=== PATIENT | female | born 1995 | race Caucasian/White ===

== ENCOUNTER → 2023-02-04 08:11 | Outpatient (CLI) | payer OTHER, SELFPAY ==
--- NOTE | 2023-02-04 08:13 | DI.US.S_ITS ---
PROCEDURE: US OB <= 14 WEEKS FETUS INDICATIONS: DATING AND VIABILITY OUTSIDE/PRIOR DATING DATA: Last menstrual period (LMP): 12/07/2022 LMP-based estimated date of delivery (LARA): 09/13/2023 First dating scan (date and location): 02/04/2023 Estimated date of delivery (LARA) from first dating scan: 09/13/2023 TECHNIQUE: Real-time scanning was performed of the fetus and maternal pelvic organs, with image documentation. Endovaginal scanning was also performed to better visualize the fetus and maternal ovaries. COMPARISON: None. FINDINGS: Embryo: Single intrauterine gestational sac is seen with fetus and yolk sac seen. [place]-rump length measures 5.4 mm. Estimated gestational age is 8 weeks, 3 days. Heart rate: 162 beats per minute. Maternal organs: Right ovary is within normal limits. Corpus luteum is noted in left ovary measures 1.8 x 1.6 x 1.8 cm in size. IMPRESSION: 1. Single live intrauterine gestation with fetus and yolk sac seen. heart rate is 162 beats per minute. Estimated gestational age based on current study is 8 weeks, 3 days. 2. Corpus luteum in left ovary as above. No perigestational hemorrhage. We strive to produce accurate, complete, and clear reports of imaging services. To assist us in improving patient care, this report was composed using standard report templates and voice recognition software. Therefore, it may contain abnormal punctuation, insertions and/or omissions. Occasional wrong-word or sound-alike substitutions may occur. Though we review the report and make efforts to correct it, we do recommend that the report be read carefully in proper context to recognize any text inaccuracies. Dictated by: Fuad Hewitt M.D. on 02/04/2023 at 10:10 Approved by: Fuad Hewitt M.D. on 02/04/2023 at 10:13
== END ==
PROVIDERS: Referring Provider Obstetrics & Gynecology; Visit Provider Obstetrics & Gynecology
DX: O34.81 Maternal care for other abnormalities of pelvic organs, first trimester (principal); N83.12 Corpus luteum cyst of left ovary; Z3A.08 8 weeks gestation of pregnancy
CPT/HCPCS: 76801; 76830; 93975

== ENCOUNTER → 2023-03-06 14:20 | Outpatient (CLI) | payer OTHER, SELFPAY ==
[2023-03-06 15:26] LABS: Add Manual Diff / Slide Review NO; Basophils Absolute Auto 0 /uL (0-100); Basophils Percent Auto 0.3 % (0-2); Eosinophils Absolute Auto 200 /uL (0-450); Eosinophils Percent Auto 2.1 % (2-4); Hematocrit 37.8 % (36-46); Hemoglobin 13.1 g/dL (12.0-16.0); Lymphocytes Absolute Auto 2600 /uL (1100-4500); Lymphocytes Percent Auto 27.4 % (25-40); Mean Corpuscular HGB Conc 34.6 % (30-36); Mean Corpuscular Hemoglobin 28.7 PG (26-34); Mean Corpuscular Volume 82.8 fL (80-100); Monocytes Absolute Auto 600 /uL (0-900); Monocytes Percent Auto 6.1 % (3-14); Neutrophils Absolute Auto 6200 /uL (1500-7000); Neutrophils Percent Auto 64.1 % (50-75); Platelet Count 194 X10^3/uL (150-400); Red Blood Cell Count 4.57 X10^6/uL (4.0-5.2); Red Cell Distribution Width 13.4 % (11.6-14.8); White Blood Cell Count 9.7 X10^3/uL (4.5-11.0)
[2023-03-07 05:28] LABS: RPR Screen Non Reactive (Non Reactive)
[2023-03-07 10:33] LABS: Varicella IgG Antibody <135 index (Immune >165)
[2023-03-09 06:24] LABS: Specimen Label NATERA
[2023-03-09 15:58] LABS: Hepatitis B Surface Antigen NEGATIVE s/c (NEGATIVE); Rubella Antibody IgG 28.5 IU/mL (>15)
[2023-03-09 16:13] LABS: HIV 1 & 2 Ab/Ag 4th Gen Combo NEGATIVE (NEGATIVE); Hep C Virus Ab w/Reflex Quant NEGATIVE s/c (NEGATIVE)
== END ==
PROVIDERS: Referring Provider Student in an Organized Health Care Education/Training Program; Visit Provider Student in an Organized Health Care Education/Training Program
DX: Z34.81 Encounter for supervision of other normal pregnancy, first trimester (principal)
CPT/HCPCS: 36415; 80055; 86787; 86803; 86850; 86900; 86901; 87086; 87389

== ENCOUNTER → 2023-04-23 09:39 | Outpatient (CLI) | payer OTHER, SELFPAY ==
[2023-04-27 13:43] LABS: AFP Value 72.1 ng/mL (.); Gest Age on Col Date 19.6 weeks (.); Insulin Dep Diabetes No (.); OSBR Risk 1IN 3133 (.); Results Report (.); Test Results *Screen Negative* (.)
== END ==
PROVIDERS: Referring Provider Student in an Organized Health Care Education/Training Program; Visit Provider Student in an Organized Health Care Education/Training Program
DX: Z34.82 Encounter for supervision of other normal pregnancy, second trimester (principal); Z3A.19 19 weeks gestation of pregnancy
CPT/HCPCS: 36415; 82105

== ENCOUNTER → 2023-04-27 13:59 | Outpatient (CLI) | payer OTHER, SELFPAY ==
--- NOTE | 2023-04-27 14:00 | DI.US.S_ITS ---
PROCEDURE: US OB >= 14 WEEKS FETUS INDICATIONS: ANATOMY OUTSIDE/PRIOR DATING DATA: Last menstrual period (LMP): 12/08/2023. LMP-based estimated date of delivery (LARA): 09/13/2023. First dating scan (date and location): 02/04/2023. Estimated date of delivery (LARA) from first dating scan: 09/13/2023. The calculations are made using the ultrasound and clinical LARA of 09/13/2023. TECHNIQUE: Real-time scanning was performed of the fetus, with image documentation and biometric measurements. Endovaginal scanning: Not performed COMPARISON: None. FINDINGS: General: A single living intrauterine gestation is present. Presentation: Variable. Placenta: Placental position is posterior and fundal , without previa. Amniotic fluid index: 15.6 cm, normal range is 5-24 cm. Single deepest vertical pocket is 4.6 cm. heart rate: 135 beats per minute. Maternal cervical canal: 3.7 cm long. Normal lower limit is 2.5 cm. biometrics: Biparietal diameter: 4.6 cm, 20 weeks 0 days Head circumference: 17.8 cm, 20 weeks 2 days Abdominal circumference: 15.7 cm, 20 weeks 6 days Femur length: 3.5 cm, 21 weeks 1 day Clinically estimated gestational age: 20 weeks 1 day Composite gestational age from present scan: 20 weeks 4 days Estimated weight and percentile: 386 g, 86th percentile Anatomic survey: Neuro: Ventricles are non-dilated at less than 10 mm. Cisterna magna is normal at 3-11 mm. Cerebellum is normal in size and morphology. Nuchal skin fold: Normal at less than 6 mm between 14-21 weeks gestational age. Face: Nose and lips, facial profile are normal. Spine: No evidence for spina bifida. Heart: 4-chambered heart is present, with normal ventricular outflow tracts. Diaphragm: Diaphragm is intact. Stomach: Left-sided stomach is present. Kidneys: No hydronephrosis. Normal is less than 5 mm in 2nd trimester, less than 7 mm in 3rd trimester. Cord: 3-vessel cord has orthotopic insertion. Bladder: Normal in size. Extremities: All 4 extremities identified. IMPRESSION: 1. Living 2nd trimester intrauterine with no sonographic evidence of complications. Current ultrasound age is concordant with clinical age, measuring 3 days greater than estimated clinical age. 2. Normal 2nd trimester anatomy study. We strive to produce accurate, complete, and clear reports of imaging services. To assist us in improving patient care, this report was composed using standard report templates and voice recognition software. Therefore, it may contain abnormal punctuation, insertions and/or omissions. Occasional wrong-word or sound-alike substitutions may occur. Though we review the report and make efforts to correct it, we do recommend that the report be read carefully in proper context to recognize any text inaccuracies. Dictated by: Rafael Ramos M.D. on 04/27/2023 at 16:30 Approved by: Rafael Ramos M.D. on 04/27/2023 at 16:37
== END ==
PROVIDERS: Referring Provider Student in an Organized Health Care Education/Training Program; Visit Provider Student in an Organized Health Care Education/Training Program
DX: Z36.89 Encounter for other specified antenatal screening (principal); Z3A.20 20 weeks gestation of pregnancy
CPT/HCPCS: 76811

== ENCOUNTER → 2023-06-12 09:38 | Outpatient (CLI) | payer OTHER, SELFPAY ==
[2023-06-12 12:59] LABS: Hematocrit 39.2 % (36-46); Hemoglobin 13.1 g/dL (12.0-16.0)
[2023-06-12 13:34] LABS: GTT (PREG) 1 Hour PP 50gm Dose 114 mg/dL (76-139)
== END ==
PROVIDERS: Referring Provider Student in an Organized Health Care Education/Training Program; Visit Provider Student in an Organized Health Care Education/Training Program
DX: Z34.82 Encounter for supervision of other normal pregnancy, second trimester (principal); Z3A.26 26 weeks gestation of pregnancy
CPT/HCPCS: 36415; 82950; 85014; 85018

== ENCOUNTER 2023-08-06 12:05 | Outpatient (CLI) | payer OTHER, SELFPAY ==
[2023-08-06 13:33] LABS: Appearance Urine UA CLEAR; Bilirubin Urine UA NEGATIVE (NEGATIVE); Color Urine UA YELLOW; Glucose Urine UA NEGATIVE (Negative); Ketones Urine UA TRACE (NEGATIVE); Leukocyte Esterase Urine UA 1+ (NEGATIVE); Nitrite Urine UA NEGATIVE (Negative); Occult Blood Urine UA NEGATIVE (Negative); Protein Urine UA NEGATIVE (Negative); Urobilinogen Urine UA 0.2 E.U./dL (0.2)
[2023-08-06 13:39] LABS: pH Urine UA 5.5 (4.5-8.0)
[2023-08-06 13:47] LABS: Bacteria Urine Many (>30); Culture Indicated Urine Specimen Cultured; RBC Urine 0-1/HPF (0-5/HPF); Squamous Epithelial Cell Urine 5-10 /HPF (0-5/HPF); Urine Volume 10mL (spun); WBC Urine 1-5/HPF (0-5/HPF)
--- NOTE | 2023-08-06 14:12 | P.TNLD_ITS ---
Visit Information Visit Information Date of evaluation: 08/06/23 Primary OB Provider: Mikaela Cote Reason for Evaluation: Yes rule out labor Comments/Additional reasons for admission: Patient presented to triage for low back pain and contractions. Denied leaking fluid or vaginal bleeding. Vital Signs Vital Signs: Reviewed in OBIX, within normal [facility] Surgical History (Updated 03/07/23 @ 21:46 by Gracie Nunez) Anesthesia History of tonsillectomy (~2007) [place] teeth extracted (~2015) Family History (Updated 03/07/23 @ 21:47 by Gracie Nunez) Mother Hyperlipidemia Hypertension Grandmother Heart disease Atrial fibrillation Stroke Hypertension Hyperlipidemia Grandfather Heart disease Hyperlipidemia Hypertension Stroke Grandfather Prostate cancer Grandmother Cancer Melanoma Social History marital status: number of children: 1 household members: spouse and children lives independently: Yes caregiver/support person: Yes housing: [facility] ([facility]) pets and animals: Yes (2 dogs) education level: college (some college, working on degree currently) occupational status: employed and student current occupational exposures/hazards: No (not while ) Previous occupational history: air ordinance, 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 travel history: recent ([place], domestic) seatbelt use: always helmet use: Yes water heater temp set < 120 deg: Yes working smoke detector in home: Yes fire extinguisher in home: Yes carbon monox detector in home: Yes firearms in home: Yes firearms unloaded and locked: Yes do you feel safe at home: Yes Smoking Status: Never smoker second hand exposure: No alcohol intake: former substance use type: does not use during the past year weight has: remained stable well-balanced diet: daily or most days daily servings fruits/ve-4 caffeine: Yes (1-2 cups coffee in AM) Type(s) of exercise: aerobic (rowing machine) Objective Labs Labs: Laboratory Results - last 24 hr 08/06/23 12:30 Urine Color Yellow Urine Appearance Clear Urine pH 5.5 Ur Specific [place] 1.010 Urine Protein Negative Urine Glucose (UA) Negative Urine Ketones Trace H Urine Occult Blood Negative Urine Nitrate Negative Urine Bilirubin Negative Urine Urobilinogen 0.2 Ur Leukocyte Esterase 1+ H Urine RBC 0-1/hpf Urine WBC 1-5/hpf Ur Squamous Epith Cells 5-10 /hpf H Urine Bacteria Many (>30) H Ur Culture Indicated? Specimen cultured Vol Urine Centrifuged 10ml (spun) U Random Total Protein Cancelled Evaluation Evaluation Baseline heart rate: 120 Variability: Moderate (11-25) monitor accelerations: Present Monitor Decelerations: Absent Contraction Frequency (minutes): 5 Uterine Contraction Intensity: Mild Category of Tracing: Reactive Diagnosis, Plan/Disposition Final Diagnosis (1) UTI in : Status: Acute (2) contractions: Status: Acute Plan/Disposition Plan: Patient monitored for several hours with spacing out of her contractions. Cervical exam was attempted by nursing, however patient unable to tolerate, given her cervix was so posterior. UA concerning for possible UTI thus will treat empirically with Macrobid. -patient to follow up in clinic as scheduled OB Disposition: home
== END 2023-08-06 14:01 | disposition home or self-care (01) ==
LOC: LABOR 12:09 → OB 08-10 11:07
PROVIDERS: Family Provider Student in an Organized Health Care Education/Training Program; Referring Provider Student in an Organized Health Care Education/Training Program; Visit Provider Student in an Organized Health Care Education/Training Program
DX: O23.43 Unspecified infection of urinary tract in pregnancy, third trimester (principal); O47.03 False labor before 37 completed weeks of gestation, third trimester; Z3A.34 34 weeks gestation of pregnancy
CPT/HCPCS: 59025; 59050; 81001; 87086; G0378; G0379

== ENCOUNTER → 2023-08-18 16:10 | Outpatient (CLI) | payer OTHER, SELFPAY ==
[2023-08-19 15:40] LABS: Strep Grp B PCR POS for Grp B Strep
== END ==
PROVIDERS: Family Provider Student in an Organized Health Care Education/Training Program; Visit Provider Student in an Organized Health Care Education/Training Program
DX: Z34.93 Encounter for supervision of normal pregnancy, unspecified, third trimester (principal); Z3A.36 36 weeks gestation of pregnancy
CPT/HCPCS: 87653

== ENCOUNTER 2023-09-07 15:16 | Inpatient (IN) | payer OTHER, SELFPAY ==
[2023-09-07 16:33] LABS: Add Manual Diff / Slide Review NO; Basophils Absolute Auto 0 /uL (0-100); Basophils Percent Auto 0.2 % (0-2); Eosinophils Absolute Auto 100 /uL (0-450); Eosinophils Percent Auto 0.6 % (2-4); Hematocrit 39.3 % (36-46); Hemoglobin 13.4 g/dL (12.0-16.0); Lymphocytes Absolute Auto 1800 /uL (1100-4500); Lymphocytes Percent Auto 17.5 % (25-40); Mean Corpuscular HGB Conc 34.1 % (30-36); Mean Corpuscular Hemoglobin 29.7 PG (26-34); Mean Corpuscular Volume 87.2 fL (80-100); Monocytes Absolute Auto 600 /uL (0-900); Monocytes Percent Auto 5.7 % (3-14); Neutrophils Absolute Auto 7900 /uL (1500-7000); Platelet Count 160 X10^3/uL (150-400); Red Blood Cell Count 4.51 X10^6/uL (4.0-5.2); Red Cell Distribution Width 13.5 % (11.6-14.8); White Blood Cell Count 10.4 X10^3/uL (4.5-11.0)
--- NOTE | 2023-09-07 16:40 | P.HPOB_ITS ---
OB HPI Date/Time Date of admission: 09/07/23 Date Patient Seen: 09/07/23 Time Patient Seen: 16:41 History of Present Condition Chief complaint: labor : 2 Para: 1 Estimated Date of Delivery: 09/13/23 Estimated Gestational Age (weeks): 39 Narrative: Lena Burgess is a 28 year old female who presents to labor and delivery in early labor History of Present care: good care, initiated at week # (8), number of visits (10) and pounds weight gain (42) Dating criteria: LMP confirmed by 1st trimester US Ultrasounds: normal mid trimester US Obstetrical complications: none Medical complications: none Preadmission Labs Blood type: A (+) positive -: Antibody screen: negative, GBS status: positive, HBsAG: negative, HIV: negative and RPR/VDLR: negative -: Chlamydia screen: not detected and Gonorrhea screen: not detected -: Rubella: immune and Varicella: not immune HCAB: negative Cell-free DNA: Normal female, negative AFP 1 hr GTT: 114 Prior (ies) History: 06/28/17 39+ 11 7 lb [facility]aginallive [facility] Evaluation Baseline heart rate: 130 Variability: Moderate (11-25) monitor accelerations: Present Monitor Decelerations: Absent Contraction Frequency (minutes): 5 Uterine Contraction Intensity: Moderate Category of Tracing: Reactive Status: Category l Dilation (cm): 2 Effacement (%): 70 station: -1 [facility] Surgical History (Updated 03/07/23 @ 21:46 by Gracie Nunez) Anesthesia History of tonsillectomy (~2007) [place] teeth extracted (~2015) Family History (Updated 03/07/23 @ 21:47 by Gracie Nunez) Mother Hyperlipidemia Hypertension Grandmother Heart disease Atrial fibrillation Stroke Hypertension Hyperlipidemia Grandfather Heart disease Hyperlipidemia Hypertension Stroke Grandfather Prostate cancer Grandmother Cancer Melanoma Social History marital status: number of children: 1 household members: spouse and children lives independently: Yes caregiver/support person: Yes housing: [facility] ([facility]) pets and animals: Yes (2 dogs) education level: college (some college, working on degree currently) occupational status: employed and student current occupational exposures/hazards: No (not while ) Previous occupational history: air ordinance, 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 travel history: recent ([place], domestic) seatbelt use: always helmet use: Yes water heater temp set < 120 deg: Yes working smoke detector in home: Yes fire extinguisher in home: Yes carbon monox detector in home: Yes firearms in home: Yes firearms unloaded and locked: Yes do you feel safe at home: Yes Smoking Status: Never smoker second hand exposure: No alcohol intake: former substance use type: does not use during the past year weight has: remained stable well-balanced diet: daily or most days daily servings fruits/ve-4 caffeine: Yes (1-2 cups coffee in AM) Type(s) of exercise: aerobic (rowing machine) Meds Home Medications and Allergies Home Medications Medication Instructions Recorded Confirmed Type vit no.95-ferrous 1 tab PO DAILY 01/21/23 08/31/23 History fumarate 28 mg-folic acid 800 mcg tablet ( Multivitamins) ondansetron 4 mg disintegrating 4 mg PO Q6H PRN nausea and 02/11/23 08/31/23 Rx tablet vomiting #20 tabs ondansetron 4 mg disintegrating 4 mg PO Q6H PRN nausea and 02/11/23 08/31/23 Rx tablet vomiting in #20 tabs breast pump #1 ea 07/15/23 08/31/23 Rx Allergies Allergy/AdvReac Type Severity Reaction Status Date / Time pineapple AdvReac Mild Abdominal Verified 08/31/23 10:13 Pain Review of Systems Review of Systems Narrative: Patient began having increasing contractions for today and presents for evaluation for labor. Some increased vaginal discharge but no actual rupture membranes. No vaginal bleeding. Good movement. No abdominal pain. OB Exam Vital signs Blood Pressure: 137/80 Pulse Rate: 82 Temperature: 97.6 F Narrative Exam Narrative: HEENT exam within normal limits. Lungs are clear to auscultation percussion. Heart is regular rate and rhythm no S3-S4 murmurs. No thyromegaly. Abdomen is gravid, fetus is vertex. Extremities without edema and nontender. Objective Labs 09/07/23 16:07 Labs: Laboratory Results - last 24 hr 09/07/23 16:07 WBC 10.4 RBC 4.51 Hgb 13.4 Hct 39.3 MCV 87.2 MCH 29.7 MCHC 34.1 RDW 13.5 Plt Count 160 Neut % (Auto) 76.0 H Lymph % (Auto) 17.5 L [place] % (Auto) 5.7 Eos % (Auto) 0.6 L Baso % (Auto) 0.2 Neut # (Auto) 7900 H Lymph # (Auto) 1800 [place] # (Auto) 600 Eos # (Auto) 100 Baso # (Auto) 0 Assessment and Plan Assessment and Plan Assessment and Plan narrative: 2 para 1 39 week 1 day gestation in early labor. Patient was found to have a large for gestational age baby in the 94th percentile at her 36 week ultrasound, also increased at her 20 week ultrasound. Anticipate vaginal delivery but will be prepared for possible dystocia from LGA .
[2023-09-07 16:47] VITALS: BP 137/80; PULSE 82; TEMP 36.4
[2023-09-07 16:55] VITALS: BP 137/80
[2023-09-07] MEDS: LACTATED RINGERS 1,000 ML 100 ML IV (18:08)
[2023-09-07] MEDS: AMPICILLIN 2,000 MG in SODIUM CHLORIDE 0.9% 100 ML 200 MG IV (18:09)
--- NOTE | 2023-09-07 20:43 | PM.AN.REGBLK ---
Regional Block Pre-procedure Procedure: Continuous Lumbar Epidural for L&D Attending OB provider: Carol García PMH/ROS narrative: 28yo female full-term in labor requesting epidural. See pre-anesthesia assessment for further details. ASA Class: II Labs: Hct 39.3 % (36-46) 09/07/23 16:07 Plt Count 160 X10^3/uL (150-400) 09/07/23 16:07 Medications: Current Medications Generic Name Dose Route Start Last Admin Trade Name Freq PRN Reason Stop Dose Admin Calcium Carbonate 1,000 mg 09/07/23 16:08 Calcium Carbonate 500 Mg Tab PO Q4HR PRN Dyspepsia Carboprost Tromethamine 250 mcg 09/07/23 16:07 Carboprost 250 Mcg/Ml Ampul IM Q90M PRN Bleeding Diphenhydramine HCl 25 mg 09/07/23 20:41 Diphenhydramine 50 Mg/Ml Vial IV Q10M PRN Pruritis Ephedrine Sulfate 5 mg 09/07/23 20:41 Ephedrine 50 Mg/Ml Vial IV Q5M PRN Blood pressure decrease more than 20% of baseline. Fentanyl 100 mcg 09/07/23 16:08 Fentanyl 100 Mcg/2 Ml Inj IV Q1H PRN Pain, Severe (7-10) Oxytocin/Lactated Ringer's 30 unit in 500 mls @ 200 mls/hr 09/07/23 16:07 Oxytocin Premix IV CONT PRN Bleeding Protocol Tranexamic Acid 1,000 mg/ 100 mls @ 200 mls/hr 09/07/23 16:07 Sodium Chloride IV NOW PRN Bleeding Ampicillin Sodium 1,000 mg/ 100 mls @ 200 mls/hr 09/07/23 20:15 Sodium Chloride IV Q4H ANT Lactated Ringer's 1,000 mls @ 100 mls/hr 09/07/23 16:15 09/07/23 18:08 Lactated Ringers IV 100 mls/hr CONT ANT Administration FENT 2MCG/ML BUPIV 0.125% EPI 200 mcg in 100 mls @ 6 mls/hr 09/07/23 20:45 Fentanyl/Bupiv/Ns 2mcg/Ml - 0.125% EPIDURAL CONT ANT Lidocaine HCl 20 ml 09/07/23 16:07 Lidocaine 1% 20 Ml INJ INTRA-OP PRN Post Delivery Methylergonovine Maleate 0.2 mg 09/07/23 16:07 Methylergonovine 0.2 Mg Tablet PO Q6HR PRN Heavy Bleeding Methylergonovine Maleate 0.2 mg 09/07/23 16:07 Methylergonovine 0.2 Mg/Ml Vial IM NOW PRN Bleeding Misoprostol 800 mcg 09/07/23 16:07 Misoprostol 200 Mcg Tablet ID NOW PRN Bleeding Misoprostol 400 mcg 09/07/23 16:07 Misoprostol 200 Mcg Tablet SL NOW PRN Bleeding Nalbuphine HCl 2.5 mg 09/07/23 20:41 Nalbuphine 20 Mg/Ml Ampul IV Q10M PRN Pruritis Naloxone HCl 0.2 mg 09/07/23 16:07 Naloxone 0.4 Mg/Ml Vial IV Q2MIN PRN Opiate Reversal Ondansetron HCl 4 mg 09/07/23 16:08 Ondansetron 4 Mg/2 Ml Inj IV Q4HR PRN Nausea And Vomiting Oxytocin 10 unit 09/07/23 16:07 Oxytocin 10 Unit/Ml Vial IM NOW PRN Bleeding Allergies: Allergies Allergy/AdvReac Type Severity Reaction Status Date / Time pineapple AdvReac Mild Abdominal Verified 08/31/23 10:13 Pain Procedure Insertion date: 09/07/23 Insertion time: 20:15 Prep/Local: 1% lidocaine (Chloraprep) Interspace: L2-3 Patient position: sitting Needle: 18 gauge Brijesh Loss of resistance with: saline JEANA at (cm): 7 Catheter placed at SKIN (cm): 13 Catheter in SPACE (cm): 6 Insertion: No CSF, No Blood, No Paresthesia with insertion, No Paresthesia with injection and No Test dose reaction Initial Medications TEST DOSE time: 20:16 TEST DOSE: 1.5% lidocaine with epinephrine 1:200k (mL): 2 BOLUS DOSE time: 20:18 BOLUS DOSE (mL): 3 BOLUS DOSE med: other (Lido with epi) Infusion INFUSION: 0.125% bupivacaine and with fentanyl 2 mcg/mL Initial rate (mL/hr): 8 Subsequent interventions: 20:00 Sterile prep and drape. Spinous processes very difficult to palpate and appear off center to left. After local 1% lido, first attempt at L3-4; bone in every direction. Second attempt at L2-3. Soft JEANA at 7 cm. Sharath 22g spinal needle placed for dural puncture with +pop; no return of spinal fluid but used the glass syringe, which wasn't working well. Attempted to thread catheter; difficult so used JEANA syringe and adjusted needle. Second attempt threading catheter was also met with some resistance but then went in. Prior to test dose, catheter aspirated with return of slightly more fluid than expected, but it did not appear to be spinal fluid. Test dose negative; bolus after two minutes was uneventful. Pt continues to be able to move BLE. Pain decreased from 7/10 to 3/10. Epidural infusion started at 20:34. 21:20 Called to troubleshoot epidural pump, which keeps alarming re occlusion. Pump works when disconnected from catheter. Catheter aspirates normally and able to inject sterile NS easily. Removed filter and pump runs okay. Attempted to give clinician bolus, but pump again kept occluding. Increased rate to 10 ml/hr. Gave bolus of 10 ml 2% lido PF as pt's pain is now 6/10 with contractions and she appears uncomfortable. 21:35 Pt reports no change after lido 2% bolus; she also reports some muscle cramping pain in her R back near the epidural site. Discussed that catheter does not appear to be in the right location and recommended replacement, to which pt agrees. After sterile prep and drape, local injected at L3-4, slightly to the left of prior epidural attempts. Positive JEANA at 6 cm. Sharath 22g needle used to access intrathecal space with return of CSF, and 0.4 ml of 0.75% bupivacaine in dextrose instilled. Pt reported legs became numb and tingly quickly, R>L. Catheter threaded easily. Test dose at 21:54 negative. Bolus at 21:55. Epidural pump restarted at 22:03. Pt appears comfortable and smiling after procedure. Post-procedure Anesthesia date START: 09/07/23 Anesthesia time START: 20:00 Anesthesia date END: 09/08/23 Anesthesia time END: 04:29 Post-procedure Anesthesia Assessment: Yes CV function: HR/BP stable, Yes Resp function: RR/sat/airway adequate, Yes Post-op hydration adequate, Yes Pain control adequate, Yes Nausea & vomiting absent, Yes Temperature > 36 C, Yes Mental status appropriate and No Anesthesia complications
--- NOTE | 2023-09-07 21:05 | PM.OBPNLAB ---
Date/Time Date Patient Seen: 09/07/23 Time Patient Seen: 21:05 Pain Control Pain control: epidural Pelvic Exam Effacement (%): 70 station: -1 Contractions Contractions on admission: regular Monitor mode: External Contraction frequency (min): 4 Contraction duration (min): 1 Contraction pattern: Regular Contraction intensity: Moderate Status status: Category ll Heart Rate Baseline: 150 Monitor Accelerations: Present Monitor Decelerations: Episodic Monitor Variability: Moderate Assessment and Plan Assessment: active labor Plan: continuous present management Comments: Cervical exam will be performed with placement of the [place] catheter after epidural was placed
[2023-09-07] MEDS: AMPICILLIN 1,000 MG in SODIUM CHLORIDE 0.9% 100 ML 200 MG IV (22:47)
[2023-09-08] MEDS: OXYTOCIN PREMIX 30 UNIT/500 ML PLAST..BAG IV (01:32)
[2023-09-08] MEDS: FENT 2MCG/ML BUPIV 0.125% EPI 200 MCG/100 ML PLAST..BAG 10 MCG EPIDURAL (02:21)
[2023-09-08] MEDS: AMPICILLIN 1,000 MG in SODIUM CHLORIDE 0.9% 100 ML 200 MG IV (02:33)
--- NOTE | 2023-09-08 04:44 | P.PCNOB_ITS ---
Labor & Delivery Delivery date: 09/08/23 Cervical ripening method: none Induction method: none Delivery augmentation: pitocin Delivery monitor: external FHT and external uterine Route of delivery: L&D Laceration Description: None Quantitative Blood Loss: 350 Anesthesia Type: Epidural Narrative: Patient arrived on Labor and delivery in early labor. She eventually received an epidural catheter for pain control. There was some difficulty getting the epidural to work and was replaced but then the patient was comfortable. heart tones category 1 to category 2 throughout labor. Patient had spontaneous rupture membranes for clear fluid. She did receive 1 milliunits of Pitocin to augment labor after her epidural was placed. The patient delivered spontaneously over an intact perineum. The viable male was placed on maternal abdomen. After the cord stopped pulsating the cord was clamped, cut, and cord bloods obtained. The placenta delivered spontaneously, intact, with 3 vessels. There were no cervical, vaginal, or perineal tears. Both and mother doing well. Routine care. [place] Baby 1: Infant gender: Male Presentation: vertex Position: Right Occiput Anterior Placenta delivery description: Spontaneous Cord Vessel Description: 3 Vessels score (1 min): 8 score (5 min): 9 weight: 8 lb 11 oz Plan for aftercare: Routine care
[2023-09-08] MEDS: ACETAMINOPHEN 325 MG TABLET 650 MG PO ×2 (07:52→14:12)
[2023-09-08] MEDS: IBUPROFEN 600 MG TABLET PO ×3 (07:52→21:36)
--- NOTE | 2023-09-08 17:17 | P.PNOB_ITS ---
Subjective - OB Subjective Patient comments: no complaints [place] baby status: doing well feeding status: exclusively breast feeding Date Patient Seen: 09/08/23 Time Patient Seen: 17:17 Exam Vital Signs (past 8 hours): Blood pressure 111/72, pulse of 85, temperature 97.8? Narrative Exam Narrative: Abdomen is soft, nontender. Uterus is firm, at U, nontender. Perineum intact. Mild lochia. Extremities with mild edema and nontender. Objective Labs 09/07/23 16:07 Labs: Laboratory Results - last 24 hr 09/07/23 16:07 Blood Type A Positive Antibody Screen Negative Assessment & Plan Plan day: 0 plan OB: routine care Time Spent With Patient Time: Total time spent is greater than 50% in coordination of care (as documented) at patient's floor/unit and/or counseling patient: Time with patient: less than 15 minutes
[2023-09-08] MEDS: HYDROCODONE/ACET 5/325 TABLET 1 TAB PO (21:35)
[2023-09-09] MEDS: HYDROCODONE/ACET 5/325 TABLET 1 TAB PO (04:04)
[2023-09-09] MEDS: IBUPROFEN 600 MG TABLET PO ×2 (04:04→10:56)
[2023-09-09 04:51] VITALS: BP 126/82; PULSE 93; RESP 17; TEMP 37.3
[2023-09-09 06:00] LABS: Add Manual Diff / Slide Review NO; Basophils Absolute Auto 0 /uL (0-100); Basophils Percent Auto 0.3 % (0-2); Eosinophils Absolute Auto 200 /uL (0-450); Eosinophils Percent Auto 1.9 % (2-4); Hematocrit 34.7 % (36-46); Hemoglobin 11.9 g/dL (12.0-16.0); Lymphocytes Absolute Auto 1900 /uL (1100-4500); Lymphocytes Percent Auto 17.4 % (25-40); Mean Corpuscular HGB Conc 34.4 % (30-36); Mean Corpuscular Hemoglobin 30.5 PG (26-34); Mean Corpuscular Volume 88.8 fL (80-100); Monocytes Absolute Auto 600 /uL (0-900); Monocytes Percent Auto 5.5 % (3-14); Neutrophils Absolute Auto 8300 /uL (1500-7000); Neutrophils Percent Auto 74.9 % (50-75); Platelet Count 134 X10^3/uL (150-400); Red Blood Cell Count 3.91 X10^6/uL (4.0-5.2); Red Cell Distribution Width 14.1 % (11.6-14.8)
--- NOTE | 2023-09-09 07:45 | PM.OBDS.1 ---
Discharge Providers Provider Date of admission: 09/07/23 15:16 Discharge Date: 09/09/23 Primary care physician: Rupesh RUEDA Provider Consults: 09/07/23 16:07 Consult to Anesthesiology Urgent Comment: Consulting Provider: Anesthesiologist Reason for consultation: Epidural Has provider been notified: No 09/09/23 04:43 Consult to Information Technology Administrator Routine Comment: Discharge provider: Carol García MD Summary Hospital Course Date Patient Seen: 09/09/23 Time Patient Seen: 06:45 Diagnoses: 39 week gestation status post vaginal delivery Hospital Course: Patient arrived on Labor and delivery in early labor. She received an epidural catheter for pain control. She had a spontaneous vaginal delivery of a viable male . She is breast-feeding without difficulty. She is urinating and ambulating well. Mild lochia. Peripartum Data Delivery Method: Natural Vaginal Laceration Description: None complications: none [place] 1: Gender: Male Disposition of : home Discharge Diagnosis (1) Vaginal delivery: Status: Acute Status at Discharge Cognitive/behavioral status at discharge: oriented Functional status at discharge: independent ambulation Overall status at discharge: patient is progressing back to baseline Time Spent with Patient Time attestation: Total time spent providing and/or coordinating discharge services: Time spent: Less than 30 minutes Objective Labs 09/09/23 05:47 Labs: Laboratory Results - last 24 hr 09/09/23 05:47 WBC 11.0 RBC 3.91 L Hgb 11.9 L Hct 34.7 L MCV 88.8 MCH 30.5 MCHC 34.4 RDW 14.1 Plt Count 134 L Neut % (Auto) 74.9 Lymph % (Auto) 17.4 L Blair % (Auto) 5.5 Eos % (Auto) 1.9 L Baso % (Auto) 0.3 Neut # (Auto) 8300 H Lymph # (Auto) 1900 Blair # (Auto) 600 Eos # (Auto) 200 Baso # (Auto) 0 Exam Vital Signs (past 8 hours): Blood pressure 110/75, pulse 71, temperature 97.2? Narrative Exam Narrative: Abdomen is soft, nontender. Uterus is firm, at U, nontender. Perineum intact. Mild lochia. Extremities with no change in her right leg edema that is been present since her last delivery and no edema in her left leg. Discharge Plan Discharge Plan Patient Disposition: Home Discharge orders & Medications Prescriptions: New acetaminophen 325 mg Tablet 650 mg PO Q6HR PRN (Reason: Pain, Mild (1-3)) Qty: 30 0RF ibuprofen 600 mg Tablet 600 mg PO Q6HR PRN (Reason: Pain, Mild (1-3)) Qty: 20 0RF Continued PNV cmb#95-ferrous fumarate-FA [ Multivitamins] 28 mg iron- 800 mcg tablet 1 tab PO DAILY Discontinued ondansetron 4 mg tablet,disintegrating 4 mg PO Q6H PRN (Reason: nausea and vomiting in ) Qty: 20 1RF ondansetron 4 mg tablet,disintegrating 4 mg PO Q6H PRN (Reason: nausea and vomiting) Qty: 20 1RF No Action (DME) breast pump Device See Rx Instructions .ROUTE .MEDSUPPLY Qty: 1 0RF Rx Instructions: double electric breast pump Follow up/Referrals: ProviderRupesh [Primary Care Provider] - Mikaela Cote DO [Family Provider] - 6 Weeks ( exam) Diet/Activity/Treatments Diet: Regular Activity: Nothing in vagina for 6 weeks Skin/Wound/Dressing Care Report to your healthcare provider any signs of infection, such as:: chills, fever and increased pain Visit Report/Discharge Packet Stand Alone Forms: Discharge: Care, Patient Portal/API, Stroke Signs & Symptoms Discharge Data Primary Care Provider: Rupesh Bowles
[2023-09-09] MEDS: ACETAMINOPHEN 325 MG TABLET 650 MG PO (10:56)
== END 2023-09-09 11:26 | disposition home or self-care (01) | DRG 807 ==
PROVIDERS: Specialist; Admitting Provider Student in an Organized Health Care Education/Training Program; Family Provider Student in an Organized Health Care Education/Training Program; Referring Provider Student in an Organized Health Care Education/Training Program; Visit Provider Student in an Organized Health Care Education/Training Program
DX: O99.824 Streptococcus B carrier state complicating childbirth (principal); Z37.0 Single live birth; Z3A.39 39 weeks gestation of pregnancy; O76 Abnormality in fetal heart rate and rhythm complicating labor and delivery
CPT/HCPCS: 36415; 59050; 59400; 59409; 85025; 86850; 86900; 86901; G0379; J0290; J2590

== ENCOUNTER 2024-01-05 09:00 | Outpatient (RCR) | payer OTHER, SELFPAY ==
--- NOTE | 2023-09-22 17:10 | PT.OIE ---
Current Diagnoses Lymphedema, not elsewhere classified (09/22/23) Edema, unspecified (09/22/23) Encounter for supervision of other normal , second trimester (09/22/23) Past Surgical History (Last Updated 03/07/23 @ 21:46 by Gracie Nunez) Anesthesia History of tonsillectomy (~2007) [place] teeth extracted (~2015) Visit Care Team Role Provider Type Eileen Wise MD Referring Provider Physician Specialty: Gynecology INSTRUMENT PANEL ASSEMBLER Obstetrics Address: [address] [place] [address] [address], [place], [address] Email: [email or web address] [email or web address] Provider Primary Care Provider Non-Staff Specialty: Medical Address: Phone: Email: Mikaela Cote DO Attending Provider Physician Family Provider Specialty: INSTRUMENT PANEL ASSEMBLER Address: [address] [place] [address], [address], [place], [address] Email: [email or web address] Physical Therapy Initial Evaluation PT-OP-A Visit Information Start: 09/21/23 14:33 Freq: Status: Active Protocol: Document 09/22/23 13:42 SAK (Rec: 09/22/23 14:01 [facility] [id number]) Out-Patient Physical Therapy Visit Information Visit Information Visit Type Initial Evaluation Visit Start Time 13:45 Visit Stop Time 15:09 Visit Number 1 Evaluation Information Evaluation Date 09/22/23 PT-OP-B Current Condition Start: 09/21/23 14:33 Freq: Status: Active Protocol: Document 09/22/23 13:42 SAK (Rec: 09/22/23 14:01 [facility] [id number]) Current Condition History of Current Condition Onset Date 6years Current Complaints lymphedema History of Current Condition lymphedema started may 2017 during first in right leg, was told it would go away. Continued to bother her, seen by vascular specialist. Has worn compression stocking (knee high since then). Second it flared up right away, just delievered baby (2 weeks old). States can just see leg swelling increase if doesn't wear compression if her legs are hanging down. Swelling location is toes to mid calf. Wears 20-30 mm Hg knee high compression but doesn't feel like adequately controlling her lymphedema. Prior Treatments and Tests just told to wear compression stockings. Treatment Goals Patient/Caregiver Goals decrease lymphedema to allow her to do usual activities without excess weight of right LE Prior Functional Status Baseline Function- ADL's Independent Baseline Function- Mobility Independent Baseline Function- Gait no limitations Current Functional Impairments (Reported) Functional Limitations- Mobility/Gait leg feels heavy Personal Factors Other Personal Factors That May Effect has , limited time Therapy/Recovery PT-OP-C Subjective Start: 09/21/23 14:33 Freq: Status: Active Protocol: Document 09/22/23 13:42 [facility] (Rec: 09/23/23 17:08 [facility] [id number]) Patient Questionnaires Lymphedema Life Impact Score Lymphedema Score 28 OP-PT Pain Assessment Pain Assessment Grid Paper Pain Assessment Grid Completed Yes Location right LE Intensity 4 Description Burning,Chronic,Pressure, Tightness PT-OP-H Neuro Start: 09/21/23 14:33 Freq: Status: Active Protocol: Document 09/22/23 13:42 [facility] (Rec: 09/23/23 17:08 [facility] [id number]) Sensation Evaluation Gross Sensation Gross Sensation WNL PT-OP-J Posture/Palpation/Skin Start: 09/21/23 14:33 Freq: Status: Active Protocol: Document 09/22/23 13:42 SAK (Rec: 09/23/23 17:08 [facility] [id number]) Palpation Assessment Location right LE Palpation Findings Edema Palpation Details no increase warmth or change in tissue texture Skin Assessment Other Assessments Skin Assessment Comments Stemmer sign positive PT-OP-K Range of Motion Start: 09/21/23 14:33 Freq: Status: Active Protocol: Document 09/22/23 13:42 SAK (Rec: 09/23/23 17:08 [facility] [id number]) Hip Goniometric Range of Motion Hip jyoti Hip ROM WFL Yes Knee Goniometric Range of Motion Knee jyoti Knee ROM WFL Yes Ankle and Foot Goniometric Range of Motion Ankle and Foot Right Dorsiflexion with Knee Flexed 5 Dorsiflexion with Knee Extended 0 left Ankle/Foot ROM WFL Yes Ankle and Foot ROM Limitations ROM Limitations Soft Tissue Tightness,Swelling PT-OP-L Special Tests Start: 09/21/23 14:33 Freq: Status: Active Protocol: Document 09/22/23 13:42 [facility] (Rec: 09/23/23 17:08 [facility] [id number]) Special Tests Other Special Tests Special Tests Stemmer sign positive for lymphedema PT-OP-N Lymphedema Start: 09/22/23 14:01 Freq: Status: Active Protocol: Document 09/22/23 13:42 [facility] (Rec: 09/22/23 15:14 [facility] [id number]) Lymphedema Measurements Lower Extremity Circumference Measurements Right Affected MT Heads 23.5 cm Mid-foot 24.5 cm Medial Malleolus 28 cm 10 cm From Medial Malleolus 27.8 cm 20 cm From Medial Malleolus 37 cm 30 cm From Medial Malleolus 36.6 cm 40 cm From Medial Malleolus 40 cm 50 cm From Medial Malleolus 47.2 cm 60 cm From Medial Malleolus 59.3 cm 70 cm From Medial Malleolus 64.8 cm Knee Joint 40 cm Left Unaffected MT Heads 22.8 cm Mid-foot 24.2 cm Medial Malleolus 26 cm 10 cm From Medial Malleolus 26.9 cm 20 cm From Medial Malleolus 36.6 cm 30 cm From Medial Malleolus 37.8 cm 40 cm From Medial Malleolus 39.7 cm 50 cm From Medial Malleolus 47.4 cm 60 cm From Medial Malleolus 57 cm 70 cm From Medial Malleolus 66.4 cm Knee Joint 39.7 cm PT-OP-Q Treatments Start: 09/21/23 14:33 Freq: Status: Active Protocol: Document 09/22/23 13:42 [facility] (Rec: 09/23/23 17:08 [facility] [id number]) Lymphedema Treatment Manual Lymphatic Drainage Location for right LE lymphedema Duration 20 Lymphedema Wrapping Body Location right LE toes to knee Materials Elastomull 4, Tricofix size F , Artiflex (2 rolls), Comprilan (6,8,10) Sequential Lymphedema Exercises Location instructed, and issued handout Compression Garment Assessment Compression Garment Assessment Details patient did not wear Patient Education Lymphedema Pathology instructed Lymphedema Prevention instructed Lymphedema Precautions instructed Compression Garments discussed options Self Manual Lymphatic Drainage instructed and issued handout Sequential Lymphedema Exercises instructed and issued handout PT-OP-T Assessment and Plan Start: 09/21/23 14:33 Freq: Status: Active Protocol: Document 09/22/23 13:42 [facility] (Rec: 09/22/23 14:01 [facility] [id number]) Physical Therapy Assessment Rehab Potential Rehabilitation Potential Good Evaluation Complexity Number of Personal Factors/Comorbidities 1-2 Number of Body Systems Impaired 3 Clinical Presentation at Evaluation Evolving Impairments Impairments Edema,Functional Activities Goals Three Impairment pain right LE Impairment pain as high as 4/10 Penitentiary Goal (LTG) Decrease pain by at least 50% to allow her to return to all usual activities. LTG Duration 12/22/23 Two Impairment decreased activity tolerance Impairment Lymphedema Life Impact Scale 28% Short Term Goal (STG) Decrease Lymphedema Life Impact scale to no greater than 18% as measure of improved activity tolerance and quality of life STG Duration 11/07/23 Penitentiary Goal (LTG) Decrease Lymphedema Life Impact scale to no greater than 10%as measure of improved activity tolerance and quality of life LTG Duration 12/22/23 One Impairment lymphedema Short Term Goal (STG) Patient to be instructed in all aspects of lymphedema care including skin care, manual lymphatic drainage, lymphedema exercises, compression. STG Duration 11/07/23 Mat Sewer Goal (LTG) Patient to be independent in all aspects of lymphedema care and obtain appropriate compression garments for self management. LTG Duration 12/22/23 Assessment Summary Assessment Patient presents to PT with function-limiting lymphedema right LE which started 6 years ago with first and worsened with second . Has had no prior treatment except to have compression stockings recommended. Reports pain as high as 4/10 right LE . Currently patient does not have any tissue fibrosis, skin discoloration, or change in temperature. Feel she will benefit from physical therapy for complete decongestive therapy to include skin care, manual lymphatic drainage, compression and exercise with patient instructed in all aspects to be able to self manage and prevent potential complications of lymphedema. Patient may benefit from the use of a sequential pneumatic pump to assist with self management. POC was discussed and patient was in agreement. Physical Therapy Plan Frequency and Duration Frequency of Treatment 20 Duration of treatment (weeks) 12 Plan of Care Start Date 09/22/23 Plan of Care End Date 12/22/23 Therapeutic Interventions Therapeutic Interventions Home Exercise Program, Lymphedema Management,Manual Therapy,Patient/Caregiver Education,Self-Care/Home Management,Soft Tissue Mobilization,Taping, Therapeutic Activities, Therapeutic Exercises Modalities Vasopneumatic Devices Next Visit Focus/Plan Next Note Type Treatment Note Next Visit Plan Assess response to compression bandaging, provide MLD and skin care, review lymphedema exercises, continue compression bandaging for lymphedema management.
--- NOTE | 2023-09-23 17:11 | PT.OPPOC ---
Physical, Occupational & Speech Therapy At [facility] Current Diagnoses Lymphedema, not elsewhere classified (09/22/23) Edema, unspecified (09/22/23) Encounter for supervision of other normal , second trimester (09/22/23) Visit Care Team Role Provider Type Eileen Wise MD Referring Provider Physician Specialty: Gynecology MACHINE FARMWORKER Obstetrics Address: [address] [place] [address] [address], [place], [address] Email: [email or web address] Rupesh MOHIT Provider Primary Care Provider Non-Staff Specialty: Medical Address: Phone: Email: Mikaela Cote DO Attending Provider Physician Family Provider Specialty: MACHINE FARMWORKER Address: [address] [place] [address], [address], [place], [address] Email: [email or web address] Plan Of Care PT-OP-T Assessment and Plan Start: 09/21/23 14:33 Freq: Status: Active Protocol: Document 09/22/23 13:42 [facility]ONEL (Rec: 09/22/23 14:01 [facility] [id number]) Physical Therapy Assessment Rehab Potential Rehabilitation Potential Good Evaluation Complexity Number of Personal Factors/Comorbidities 1-2 Number of Body Systems Impaired 3 Clinical Presentation at Evaluation Evolving Impairments Impairments Edema,Functional Activities Goals Three Impairment pain right LE Impairment pain as high as 4/10 Salt Grinder Goal (LTG) Decrease pain by at least 50% to allow her to return to all usual activities. LTG Duration 12/22/23 Two Impairment decreased activity tolerance Impairment Lymphedema Life Impact Scale 28% Short Term Goal (STG) Decrease Lymphedema Life Impact scale to no greater than 18% as measure of improved activity tolerance and quality of life STG Duration 11/07/23 Salt Grinder Goal (LTG) Decrease Lymphedema Life Impact scale to no greater than 10%as measure of improved activity tolerance and quality of life LTG Duration 12/22/23 One Impairment lymphedema Short Term Goal (STG) Patient to be instructed in all aspects of lymphedema care including skin care, manual lymphatic drainage, lymphedema exercises, compression. STG Duration 11/07/23 Salt Grinder Goal (LTG) Patient to be independent in all aspects of lymphedema care and obtain appropriate compression garments for self management. LTG Duration 12/22/23 Assessment Summary Assessment Patient presents to PT with function-limiting lymphedema right LE which started 6 years ago with first and worsened with second . Has had no prior treatment except to have compression stockings recommended. Reports pain as high as 4/10 right LE . Currently patient does not have any tissue fibrosis, skin discoloration, or change in temperature. Feel she will benefit from physical therapy for complete decongestive therapy to include skin care, manual lymphatic drainage, compression and exercise with patient instructed in all aspects to be able to self manage and prevent potential complications of lymphedema. Patient may benefit from the use of a sequential pneumatic pump to assist with self management. POC was discussed and patient was in agreement. Physical Therapy Plan Frequency and Duration Frequency of Treatment 20 Duration of treatment (weeks) 12 Plan of Care Start Date 09/22/23 Plan of Care End Date 12/22/23 Therapeutic Interventions Therapeutic Interventions Home Exercise Program, Lymphedema Management,Manual Therapy,Patient/Caregiver Education,Self-Care/Home Management,Soft Tissue Mobilization,Taping, Therapeutic Activities, Therapeutic Exercises Modalities Vasopneumatic Devices Next Visit Focus/Plan Next Note Type Treatment Note Next Visit Plan Assess response to compression bandaging, provide MLD and skin care, review lymphedema exercises, continue compression bandaging for lymphedema management. Plan of Care Dates Plan of Care Start Date 09/22/23 Plan of Care End Date 12/22/23 Electronically Signed by: Adele Romo PT 09/23/23 4289 If you are in agreement with this Plan of Care, please return a signed and dated copy. I have reviewed this Plan of Care and certify that the skilled therapy services above are required to meet the patient?s needs. Physician Signature Date Printed Name and Credentials Clinical Instructor Signature Printed Name and Credentials
--- NOTE | 2023-09-24 17:32 | PT.OTN ---
Current Diagnoses Lymphedema, not elsewhere classified (09/24/23) Edema, unspecified (09/24/23) Encounter for supervision of other normal , second trimester (09/24/23) Physical Therapy Treatment Note PT-OP-A Visit Information Start: 09/21/23 14:33 Freq: Status: Active Protocol: Document 09/24/23 13:47 SAK (Rec: 09/24/23 15:18 SAK [id number]) Out-Patient Physical Therapy Visit Information Visit Information Visit Type Treatment Note Visit Start Time 13:47 Visit Stop Time 15:14 Visit Number 2 Evaluation Information Evaluation Date 09/22/23 PT-OP-B Current Condition Start: 09/21/23 14:33 Freq: Status: Active Protocol: Document 09/24/23 13:47 SAK (Rec: 09/24/23 15:18 SAK [id number]) Current Condition History of Current Condition Onset Date 6years Current Complaints lymphedema History of Current Condition lymphedema started may 2017 during first in right leg, was told it would go away. Continued to bother her, seen by vascular specialist. Has worn compression stocking (knee high since then). Second it flared up right away, just delievered baby (2 weeks old). States can just see leg swelling increase if doesn't wear compression if her legs are hanging down. Swelling location is toes to mid calf. Wears 20-30 mm Hg knee high compression but doesn't feel like adequately controlling her lymphedema. Prior Treatments and Tests just told to wear compression stockings. Personal Factors Other Personal Factors That May Effect has , limited time Therapy/Recovery PT-OP-C Subjective Start: 09/21/23 14:33 Freq: Status: Active Protocol: Document 09/24/23 13:47 SAK (Rec: 09/24/23 15:18 SAK [id number]) OP-PT Subjective Patient Comments Patient Comments Made it almost 24 hours, was amazed at how much it decreased in size. Then wore compression tights until 5 am, then got uncomfortable. PT-OP-H Neuro Start: 09/21/23 14:33 Freq: Status: Active Protocol: Document 09/22/23 13:42 SAK (Rec: 09/23/23 17:08 SAK [id number]) Sensation Evaluation Gross Sensation Gross Sensation WNL PT-OP-J Posture/Palpation/Skin Start: 09/21/23 14:33 Freq: Status: Active Protocol: Document 09/22/23 13:42 SAK (Rec: 09/23/23 17:08 [facility] [id number]) Palpation Assessment Location right LE Palpation Findings Edema Palpation Details no increase warmth or change in tissue texture Skin Assessment Other Assessments Skin Assessment Comments Stemmer sign positive PT-OP-K Range of Motion Start: 09/21/23 14:33 Freq: Status: Active Protocol: Document 09/22/23 13:42 SAK (Rec: 09/23/23 17:08 [facility] [id number]) Hip Goniometric Range of Motion Hip jyoti Hip ROM WFL Yes Knee Goniometric Range of Motion Knee jyoti Knee ROM WFL Yes Ankle and Foot Goniometric Range of Motion Ankle and Foot Right Dorsiflexion with Knee Flexed 5 Dorsiflexion with Knee Extended 0 left Ankle/Foot ROM WFL Yes Ankle and Foot ROM Limitations ROM Limitations Soft Tissue Tightness,Swelling PT-OP-L Special Tests Start: 09/21/23 14:33 Freq: Status: Active Protocol: Document 09/22/23 13:42 SAK (Rec: 09/23/23 17:08 [facility] [id number]) Special Tests Other Special Tests Special Tests Stemmer sign positive for lymphedema PT-OP-N Lymphedema Start: 09/22/23 14:01 Freq: Status: Active Protocol: Document 09/24/23 13:47 SAK (Rec: 09/24/23 15:18 [facility] [id number]) Lymphedema Measurements Lower Extremity Circumference Measurements Right Affected MT Heads 23.1 cm Mid-foot 24 cm Medial Malleolus 28 cm 10 cm From Medial Malleolus 26.5 cm 20 cm From Medial Malleolus 36.3 cm 30 cm From Medial Malleolus 39.3 cm 40 cm From Medial Malleolus 39.3 cm 50 cm From Medial Malleolus 47.3 cm 60 cm From Medial Malleolus 56.3 cm Knee Joint 39.3 cm PT-OP-Q Treatments Start: 09/21/23 14:33 Freq: Status: Active Protocol: Document 09/24/23 13:48 SAK (Rec: 09/24/23 17:32 SAK [id number]) Therapeutic Exercises Supine Exercises deep breathing Side bilateral Comments with patient educated in quadrant breathing with self facil heelslide Side right Reps/Minutes 10x toe flex/ext Side bilateral Reps/Minutes 10x ankle pumps Side bilateral Reps/Minutes 10x Standing Exercises heel/toe raise Side bilateral Reps/Minutes 10x Lymphedema Treatment Manual Lymphatic Drainage Location for right LE lymphedema Duration 30 Comments use of video and PT demo for education in self MLD Lymphedema Wrapping Body Location right LE toes to knee Materials Elastomull 4, Tricofix size F , Artiflex (2 rolls), Comprilan (6,8,10) Other shown video for self review at home Sequential Lymphedema Exercises Location as above Compression Garment Assessment Compression Garment Assessment Details patient wearing size II Juzo thigh high 15-20 mm Hg compression garment loaner to PT today Patient Education Lymphedema Pathology reviewed Lymphedema Prevention reviewed Lymphedema Precautions reviewed Compression Garments further discussion Self Manual Lymphatic Drainage instructed as above PT-OP-T Assessment and Plan Start: 09/21/23 14:33 Freq: Status: Active Protocol: Document 09/24/23 13:47 [facility] (Rec: 09/24/23 15:18 [facility] [id number]) Physical Therapy Assessment Impairments Impairments Edema,Functional Activities, Pain Goals Three Impairment pain right LE Impairment pain as high as 4/10 Funeral Pre Arrangement Specialist Goal (LTG) Decrease pain by at least 50% to allow her to return to all usual activities. LTG Duration 12/22/23 Two Impairment decreased activity tolerance Impairment Lymphedema Life Impact Scale 28% Short Term Goal (STG) Decrease Lymphedema Life Impact scale to no greater than 18% as measure of improved activity tolerance and quality of life STG Duration 11/07/23 [facility]dc Goal (LTG) Decrease Lymphedema Life Impact scale to no greater than 10%as measure of improved activity tolerance and quality of life LTG Duration 12/22/23 One Impairment lymphedema Short Term Goal (STG) Patient to be instructed in all aspects of lymphedema care including skin care, manual lymphatic drainage, lymphedema exercises, compression. STG Duration 11/07/23 Funeral Pre Arrangement Specialist Goal (LTG) Patient to be independent in all aspects of lymphedema care and obtain appropriate compression garments for self management. LTG Duration 12/22/23 Assessment Summary Assessment Patient reported good size reduction with bandaging but had difficulty peforming on her own, wore loaner 15-20 mm Hg compression stocking thigh high; felt thigh high better than prior knee high sche has worn, but not enough compression. Reviewed bandaging, patient instructed in self MLD verbally, with PT, and with video with patient demonstrating good understanding. Physical Therapy Plan Frequency and Duration Frequency of Treatment 20 Duration of treatment (weeks) 12 Plan of Care Start Date 09/22/23 Plan of Care End Date 12/22/23 Therapeutic Interventions Therapeutic Interventions Home Exercise Program, Lymphedema Management,Manual Therapy,Patient/Caregiver Education,Self-Care/Home Management,Soft Tissue Mobilization,Taping, Therapeutic Activities, Therapeutic Exercises Modalities Vasopneumatic Devices Next Visit Focus/Plan Next Note Type Treatment Note Next Visit Plan Continue CDT.
--- NOTE | 2023-09-29 15:56 | PT.OTN ---
Current Diagnoses Lymphedema, not elsewhere classified (09/29/23) Edema, unspecified (09/29/23) Encounter for supervision of other normal , second trimester (09/29/23) Physical Therapy Treatment Note PT-OP-A Visit Information Start: 09/21/23 14:33 Freq: Status: Active Protocol: Document 09/29/23 13:51 SAK (Rec: 09/29/23 14:28 SAK [id number]) Out-Patient Physical Therapy Visit Information Visit Information Visit Type Treatment Note Visit Start Time 13:47 Visit Stop Time 15:10 Visit Number 3 Evaluation Information Evaluation Date 09/22/23 PT-OP-B Current Condition Start: 09/21/23 14:33 Freq: Status: Active Protocol: Document 09/29/23 13:51 SAK (Rec: 09/29/23 14:28 SAK [id number]) Current Condition History of Current Condition Onset Date 6years Current Complaints lymphedema History of Current Condition lymphedema started may 2017 during first in right leg, was told it would go away. Continued to bother her, seen by vascular specialist. Has worn compression stocking (knee high since then). Second it flared up right away, just delievered baby (2 weeks old). States can just see leg swelling increase if doesn't wear compression if her legs are hanging down. Swelling location is toes to mid calf. Wears 20-30 mm Hg knee high compression but doesn't feel like adequately controlling her lymphedema. Prior Treatments and Tests just told to wear compression stockings. Treatment Goals Patient/Caregiver Goals decrease lymphedema to allow her to do usual activities without excess weight of right LE Prior Functional Status Baseline Function- ADL's Independent Baseline Function- Mobility Independent Baseline Function- Gait no limitations PT-OP-C Subjective Start: 09/21/23 14:33 Freq: Status: Active Protocol: Document 09/29/23 13:51 SAK (Rec: 09/29/23 14:28 SAK [id number]) OP-PT Subjective Patient Comments Patient Comments States she has been bandaging, having some difficulty. Wearing 20-30 mm Hg stocking loaner with best control of edema, didn't do well with only 15-20 mm Hg stockings. PT-OP-H Neuro Start: 09/21/23 14:33 Freq: Status: Active Protocol: Document 09/22/23 13:42 SAK (Rec: 09/23/23 17:08 [facility] [id number]) Sensation Evaluation Gross Sensation Gross Sensation WNL PT-OP-J Posture/Palpation/Skin Start: 09/21/23 14:33 Freq: Status: Active Protocol: Document 09/22/23 13:42 SAK (Rec: 09/23/23 17:08 [facility] [id number]) Palpation Assessment Location right LE Palpation Findings Edema Palpation Details no increase warmth or change in tissue texture Skin Assessment Other Assessments Skin Assessment Comments Stemmer sign positive PT-OP-K Range of Motion Start: 09/21/23 14:33 Freq: Status: Active Protocol: Document 09/22/23 13:42 SAK (Rec: 09/23/23 17:08 [facility] [id number]) Hip Goniometric Range of Motion Hip jyoti Hip ROM WFL Yes Knee Goniometric Range of Motion Knee jyoti Knee ROM WFL Yes Ankle and Foot Goniometric Range of Motion Ankle and Foot Right Dorsiflexion with Knee Flexed 5 Dorsiflexion with Knee Extended 0 left Ankle/Foot ROM WFL Yes Ankle and Foot ROM Limitations ROM Limitations Soft Tissue Tightness,Swelling PT-OP-L Special Tests Start: 09/21/23 14:33 Freq: Status: Active Protocol: Document 09/22/23 13:42 SAK (Rec: 09/23/23 17:08 [facility] [id number]) Special Tests Other Special Tests Special Tests Stemmer sign positive for lymphedema PT-OP-N Lymphedema Start: 09/22/23 14:01 Freq: Status: Active Protocol: Document 09/29/23 13:51 SAK (Rec: 09/29/23 14:28 [facility] [id number]) Lymphedema Measurements Lower Extremity Circumference Measurements Right Affected MT Heads 23.7 cm Mid-foot 24.2 cm Medial Malleolus 28.8 cm 10 cm From Medial Malleolus 27.8 cm 20 cm From Medial Malleolus 36.7 cm 30 cm From Medial Malleolus 37 cm 40 cm From Medial Malleolus 40.3 cm 50 cm From Medial Malleolus 48.4 cm 60 cm From Medial Malleolus 57 cm 70 cm From Medial Malleolus 68.8 cm Knee Joint 40.3 cm PT-OP-Q Treatments Start: 09/21/23 14:33 Freq: Status: Active Protocol: Document 09/29/23 13:51 SAK (Rec: 09/29/23 14:28 [facility] [id number]) Lymphedema Treatment Manual Lymphatic Drainage Location for right LE lymphedema Duration 30 Comments use of video and PT demo for education in self MLD Lymphedema Wrapping Body Location right LE toes to knee Materials Elastomull 4, Tricofix size F , Artiflex (2 rolls), Comprilan (6,8,10) Other shown video for self review at home Sequential Lymphedema Exercises Location as above Compression Garment Assessment Compression Garment Assessment Details patient wearing size II Juzo thigh high 15-20 mm Hg compression garment loaner to PT today PT-OP-T Assessment and Plan Start: 09/21/23 14:33 Freq: Status: Active Protocol: Document 09/29/23 13:51 [facility] (Rec: 09/29/23 15:56 [facility] [id number]) Physical Therapy Assessment Impairments Impairments Edema,Functional Activities, Pain Goals Three Impairment pain right LE Impairment pain as high as 4/10 Rn Perioperative Goal (LTG) Decrease pain by at least 50% to allow her to return to all usual activities. LTG Duration 12/22/23 Two Impairment decreased activity tolerance Impairment Lymphedema Life Impact Scale 28% Short Term Goal (STG) Decrease Lymphedema Life Impact scale to no greater than 18% as measure of improved activity tolerance and quality of life STG Duration 11/07/23 Detention Goal (LTG) Decrease Lymphedema Life Impact scale to no greater than 10%as measure of improved activity tolerance and quality of life LTG Duration 12/22/23 One Impairment lymphedema Short Term Goal (STG) Patient to be instructed in all aspects of lymphedema care including skin care, manual lymphatic drainage, lymphedema exercises, compression. STG Duration 11/07/23 Detention Goal (LTG) Patient to be independent in all aspects of lymphedema care and obtain appropriate compression garments for self management. LTG Duration 12/22/23 Assessment Summary Assessment Patient trying to do self- bandaging, improving but reviewed today, with patient taking video of PT. Preferred Lobito sandle technique to figure 8. Patient not doing toes correctly but demonstrated improved understanding after review. Variable circumferential measurements. Added Komprex kidneys today and issued black foam for possible trial dorsum of foot as that is most challenging area to get reduction. Patient looking at options for compression. Trial of both 15-20 and 20-30 mm Hg pressure compression stockings with patient reporting much better control of edema with 20-30 mm Hg compression level. Physical Therapy Plan Frequency and Duration Frequency of Treatment 20 Duration of treatment (weeks) 12 Plan of Care Start Date 09/22/23 Plan of Care End Date 12/22/23 Therapeutic Interventions Therapeutic Interventions Home Exercise Program, Lymphedema Management,Manual Therapy,Patient/Caregiver Education,Self-Care/Home Management,Soft Tissue Mobilization,Taping, Therapeutic Activities, Therapeutic Exercises Modalities Vasopneumatic Devices Next Visit Focus/Plan Next Note Type Treatment Note Next Visit Plan Continue CDT. Assess response to use of Komprex kidneys and foam.
--- NOTE | 2023-10-05 14:52 | PT.OTN ---
Current Diagnoses Lymphedema, not elsewhere classified (10/05/23) Edema, unspecified (10/05/23) Encounter for supervision of other normal , second trimester (10/05/23) Physical Therapy Treatment Note PT-OP-A Visit Information Start: 09/21/23 14:33 Freq: Status: Active Protocol: Document 10/05/23 13:52 SAK (Rec: 10/05/23 14:[address] [facility] [id number]) Out-Patient Physical Therapy Visit Information Visit Information Visit Type Treatment Note Visit Start Time 13:50 Visit Stop Time 15:15 Visit Number 5 Evaluation Information Evaluation Date 09/22/23 PT-OP-B Current Condition Start: 09/21/23 14:33 Freq: Status: Active Protocol: Document 10/05/23 13:52 SAK (Rec: 10/05/23 14:[address] [facility] [id number]) Current Condition History of Current Condition Onset Date 6years Current Complaints lymphedema History of Current Condition lymphedema started may 2017 during first in right leg, was told it would go away. Continued to bother her, seen by vascular specialist. Has worn compression stocking (knee high since then). Second it flared up right away, just delievered baby (2 weeks old). States can just see leg swelling increase if doesn't wear compression if her legs are hanging down. Swelling location is toes to mid calf. Wears 20-30 mm Hg knee high compression but doesn't feel like adequately controlling her lymphedema. Prior Treatments and Tests just told to wear compression stockings. PT-OP-C Subjective Start: 09/21/23 14:33 Freq: Status: Active Protocol: Document 10/05/23 13:52 SAK (Rec: 10/05/23 14:[address] [facility] [id number]) OP-PT Subjective Patient Comments Patient Comments Bandaging challenging, slid down, tried a couple more times. Feels thigh high bandaging doesn't work well. PT-OP-H Neuro Start: 09/21/23 14:33 Freq: Status: Active Protocol: Document 09/22/23 13:42 SAK (Rec: 09/23/23 17:08 SAK [id number]) Sensation Evaluation Gross Sensation Gross Sensation WNL PT-OP-J Posture/Palpation/Skin Start: 09/21/23 14:33 Freq: Status: Active Protocol: Document 09/22/23 13:[address] [facility] (Rec: 09/23/23 17:[address] [facility] [id number]) Palpation Assessment Location right LE Palpation Findings Edema Palpation Details no increase warmth or change in tissue texture Skin Assessment Other Assessments Skin Assessment Comments Stemmer sign positive PT-OP-K Range of Motion Start: 09/21/23 14:33 Freq: Status: Active Protocol: Document 09/22/23 13:[address] [facility] (Rec: 09/23/23 17:[address] [facility] [id number]) Hip Goniometric Range of Motion Hip jyoti Hip ROM WFL Yes Knee Goniometric Range of Motion Knee jyoti Knee ROM WFL Yes Ankle and Foot Goniometric Range of Motion Ankle and Foot Right Dorsiflexion with Knee Flexed 5 Dorsiflexion with Knee Extended 0 left Ankle/Foot ROM WFL Yes Ankle and Foot ROM Limitations ROM Limitations Soft Tissue Tightness,Swelling PT-OP-L Special Tests Start: 09/21/23 14:33 Freq: Status: Active Protocol: Document 09/22/23 13:[address] [facility] (Rec: 09/23/23 17:[address] [facility] [id number]) Special Tests Other Special Tests Special Tests Stemmer sign positive for lymphedema PT-OP-N Lymphedema Start: 09/22/23 14:01 Freq: Status: Active Protocol: Document 10/05/23 13:[address] [facility] (Rec: 10/05/23 14:[address] [facility] [id number]) Lymphedema Measurements Lower Extremity Circumference Measurements Right Affected MT Heads 22.7 cm Mid-foot 23 cm Medial Malleolus 27.5 cm 10 cm From Medial Malleolus 26.2 cm 20 cm From Medial Malleolus 35.5 cm 30 cm From Medial Malleolus 36.3 cm 40 cm From Medial Malleolus 37.8 cm 50 cm From Medial Malleolus 45.7 cm 60 cm From Medial Malleolus 56.4 cm 70 cm From Medial Malleolus 67 cm Knee Joint 37.8 cm Left Unaffected MT Heads 22.8 cm Mid-foot 23.5 cm Medial Malleolus 26 cm 10 cm From Medial Malleolus 26 cm 20 cm From Medial Malleolus 26.1 cm 30 cm From Medial Malleolus 37 cm 40 cm From Medial Malleolus 39.5 cm 50 cm From Medial Malleolus 47.4 cm 60 cm From Medial Malleolus 57.4 cm 70 cm From Medial Malleolus 65.9 cm Knee Joint 39.7 cm PT-OP-Q Treatments Start: 09/21/23 14:33 Freq: Status: Active Protocol: Document 10/05/23 13:[address] [facility] (Rec: 10/05/23 14:[address] [facility] [id number]) Lymphedema Treatment Manual Lymphatic Drainage Location for right LE lymphedema Duration 30 Lymphedema Wrapping Body Location right LE toes to knee Materials Elastomull 4, Tricofix size F , Artiflex (3 rolls), Comprilan (6,8,10x3) Sequential Lymphedema Exercises Location as above Compression Garment Assessment Compression Garment Assessment Details Continues to occasionally wear thigh high 20-30 mm Hg compression garment loaner to PT today. Patient Education Lymphedema Pathology reviewed Lymphedema Prevention reviewed Lymphedema Precautions reviewed Compression Garments further discussion Self Manual Lymphatic Drainage instructed as above PT-OP-R Modalities Start: 09/21/23 14:33 Freq: Status: Active Protocol: Document 10/05/23 13:[address] [facility] (Rec: 10/05/23 14:[address] [facility] [id number]) Compression Pump Treatment Treatment Location Right Leg Pressure Amount (mmHg) (mmHG) 40 Inflation Time (Seconds) 30 Deflation Time (Seconds) 10 Treatment Tolerance Excellent PT-OP-T Assessment and Plan Start: 09/21/23 14:33 Freq: Status: Active Protocol: Document 10/05/23 13:[address] [facility] (Rec: 10/05/23 14:[address] [facility] [id number]) Physical Therapy Assessment Impairments Impairments Edema,Functional Activities, Pain Goals Three Impairment pain right LE Impairment pain as high as 4/10 Senior Living Goal (LTG) Decrease pain by at least 50% to allow her to return to all usual activities. LTG Duration 12/22/23 Two Impairment decreased activity tolerance Impairment Lymphedema Life Impact Scale 28% Short Term Goal (STG) Decrease Lymphedema Life Impact scale to no greater than 18% as measure of improved activity tolerance and quality of life STG Duration 11/07/23 Senior Living Goal (LTG) Decrease Lymphedema Life Impact scale to no greater than 10%as measure of improved activity tolerance and quality of life LTG Duration 12/22/23 One Impairment lymphedema Short Term Goal (STG) Patient to be instructed in all aspects of lymphedema care including skin care, manual lymphatic drainage, lymphedema exercises, compression. STG Duration 11/07/23 [employer] Goal (LTG) Patient to be independent in all aspects of lymphedema care and obtain appropriate compression garments for self management. LTG Duration 12/22/23 Assessment Summary Assessment Decrease in circumferential measurements, continue to progress. Patient looking at compression options. She has not yet filled out information on [facility] website Physical Therapy Plan Frequency and Duration Frequency of Treatment 20 Duration of treatment (weeks) 12 Plan of Care Start Date 09/22/23 Plan of Care End Date 12/22/23 Therapeutic Interventions Therapeutic Interventions Home Exercise Program, Lymphedema Management,Manual Therapy,Patient/Caregiver Education,Self-Care/Home Management,Soft Tissue Mobilization,Taping, Therapeutic Activities, Therapeutic Exercises Modalities Vasopneumatic Devices Next Visit Focus/Plan Next Note Type Treatment Note Next Visit Plan Continue CLT
--- NOTE | 2023-10-12 16:23 | PT.OTN ---
Current Diagnoses Lymphedema, not elsewhere classified (10/12/23) Edema, unspecified (10/12/23) Encounter for supervision of other normal , second trimester (10/12/23) Physical Therapy Treatment Note PT-OP-A Visit Information Start: 09/21/23 14:33 Freq: Status: Active Protocol: Document 10/12/23 13:50 SAK (Rec: 10/12/23 15:15 SAK [id number]) Out-Patient Physical Therapy Visit Information Visit Information Visit Type Treatment Note Visit Start Time 13:50 Visit Stop Time 15:15 Visit Number 6 Evaluation Information Evaluation Date 09/22/23 PT-OP-B Current Condition Start: 09/21/23 14:33 Freq: Status: Active Protocol: Document 10/12/23 13:50 SAK (Rec: 10/12/23 15:15 SAK [id number]) Current Condition History of Current Condition Onset Date 6years Current Complaints lymphedema History of Current Condition lymphedema started may 2017 during first in right leg, was told it would go away. Continued to bother her, seen by vascular specialist. Has worn compression stocking (knee high since then). Second it flared up right away, just delievered baby (2 weeks old). States can just see leg swelling increase if doesn't wear compression if her legs are hanging down. Swelling location is toes to mid calf. Wears 20-30 mm Hg knee high compression but doesn't feel like adequately controlling her lymphedema. Prior Treatments and Tests just told to wear compression stockings. Treatment Goals Patient/Caregiver Goals decrease lymphedema to allow her to do usual activities without excess weight of right LE PT-OP-C Subjective Start: 09/21/23 14:33 Freq: Status: Active Protocol: Document 10/12/23 13:50 SAK (Rec: 10/12/23 15:15 SAK [id number]) OP-PT Subjective Patient Comments Patient Comments Varying success with bandaging , sometimes achy after bandaged for awhile, proximal massage helpful. Got second set of bandagew. Swelling less if layers 20-30 and sock of 20-30 on top, thinking thigh high 30-40 mm Hg in consult with PT. Hoping to be able to get lymphedema pump. Hasn't been bandaged since last night. PT-OP-H Neuro Start: 09/21/23 14:33 Freq: Status: Active Protocol: Document 09/22/23 13:42 SAK (Rec: 09/23/23 17:08 [facility] [id number]) Sensation Evaluation Gross Sensation Gross Sensation WNL PT-OP-J Posture/Palpation/Skin Start: 09/21/23 14:33 Freq: Status: Active Protocol: Document 09/22/23 13:42 SAK (Rec: 09/23/23 17:08 [facility] [id number]) Palpation Assessment Location right LE Palpation Findings Edema Palpation Details no increase warmth or change in tissue texture Skin Assessment Other Assessments Skin Assessment Comments Stemmer sign positive PT-OP-K Range of Motion Start: 09/21/23 14:33 Freq: Status: Active Protocol: Document 09/22/23 13:42 SAK (Rec: 09/23/23 17:08 [facility] [id number]) Hip Goniometric Range of Motion Hip jyoti Hip ROM WFL Yes Knee Goniometric Range of Motion Knee jyoti Knee ROM WFL Yes Ankle and Foot Goniometric Range of Motion Ankle and Foot Right Dorsiflexion with Knee Flexed 5 Dorsiflexion with Knee Extended 0 left Ankle/Foot ROM WFL Yes Ankle and Foot ROM Limitations ROM Limitations Soft Tissue Tightness,Swelling PT-OP-L Special Tests Start: 09/21/23 14:33 Freq: Status: Active Protocol: Document 09/22/23 13:42 SAK (Rec: 09/23/23 17:08 [facility] [id number]) Special Tests Other Special Tests Special Tests Stemmer sign positive for lymphedema PT-OP-N Lymphedema Start: 09/22/23 14:01 Freq: Status: Active Protocol: Document 10/12/23 13:50 SAK (Rec: 10/12/23 15:15 [facility] [id number]) Lymphedema Measurements Lower Extremity Circumference Measurements Right Affected MT Heads 22.6 cm Mid-foot 24.7 cm Medial Malleolus 28 cm 10 cm From Medial Malleolus 27 cm 20 cm From Medial Malleolus 36.9 cm 30 cm From Medial Malleolus 37.6 cm 40 cm From Medial Malleolus 39.8 cm 50 cm From Medial Malleolus 47.9 cm 60 cm From Medial Malleolus 57.7 cm 70 cm From Medial Malleolus 67.3 cm Knee Joint 39.8 cm PT-OP-Q Treatments Start: 09/21/23 14:33 Freq: Status: Active Protocol: Document 10/12/23 13:50 [facility] (Rec: 10/12/23 15:15 [facility] [id number]) Self-Care/Home Management Treatment Education Other Education messaged [facility] regarding status of patient instructed patient to do same. Activities Self-Care/Home Management Activities continue bandaging. Lymphedema Treatment Manual Lymphatic Drainage Location for right LE lymphedema Duration 30 Lymphedema Wrapping Body Location right LE toes to knee Materials Elastomull 4, Tricofix size F , Artiflex (3 rolls), Comprilan (6,8,10x3) PT-OP-R Modalities Start: 09/21/23 14:33 Freq: Status: Active Protocol: Document 10/05/23 13:52 SAK (Rec: 10/05/23 14:52 [facility] [id number]) Compression Pump Treatment Treatment Location Right Leg Pressure Amount (mmHg) (mmHG) 40 Inflation Time (Seconds) 30 Deflation Time (Seconds) 10 Treatment Tolerance Excellent PT-OP-T Assessment and Plan Start: 09/21/23 14:33 Freq: Status: Active Protocol: Document 10/12/23 13:50 [facility] (Rec: 10/12/23 15:15 [facility] [id number]) Physical Therapy Assessment Assessment Summary Assessment Increased circumferential measurements today likely due to not wearing compression since last night. Patient responds very well to sequential pneumatic pump with foam and Komprex kidneys; recommend patient obtain sequential pneumatic pump for home use. Difficulty to be consistent with compression bandaging due to and toddler. Physical Therapy Plan Frequency and Duration Frequency of Treatment 20 Duration of treatment (weeks) 12 Plan of Care Start Date 09/22/23 Plan of Care End Date 12/22/23 Therapeutic Interventions Therapeutic Interventions Home Exercise Program, Lymphedema Management,Manual Therapy,Patient/Caregiver Education,Self-Care/Home Management,Soft Tissue Mobilization,Taping, Therapeutic Activities, Therapeutic Exercises Modalities Vasopneumatic Devices Next Visit Focus/Plan Next Note Type Treatment Note Next Visit Plan Continue CLT. Check [facility] for patient info, prescription, see if anything else needs to be done . Patient to contact insurance company to check on coverage of compression stockings. Patient size regular length size II Juzo, size M toe cap.
--- NOTE | 2023-10-19 14:47 | PT.OTN ---
Current Diagnoses Lymphedema, not elsewhere classified (10/19/23) Edema, unspecified (10/19/23) Encounter for supervision of other normal , second trimester (10/19/23) Physical Therapy Treatment Note PT-OP-A Visit Information Start: 09/21/23 14:33 Freq: Status: Active Protocol: Document 10/19/23 13:49 SAK (Rec: 10/19/23 14:37 [facility] [id number]) Out-Patient Physical Therapy Visit Information Visit Information Visit Type Treatment Note Visit Start Time 13:49 Visit Stop Time 15:15 Visit Number 7 PT-OP-B Current Condition Start: 09/21/23 14:33 Freq: Status: Active Protocol: Document 10/19/23 13:49 SAK (Rec: 10/19/23 14:37 [facility] [id number]) Current Condition History of Current Condition Onset Date 6years Current Complaints lymphedema History of Current Condition lymphedema started may 2017 during first in right leg, was told it would go away. Continued to bother her, seen by vascular specialist. Has worn compression stocking (knee high since then). Second it flared up right away, just delievered baby (2 weeks old). States can just see leg swelling increase if doesn't wear compression if her legs are hanging down. Swelling location is toes to mid calf. Wears 20-30 mm Hg knee high compression but doesn't feel like adequately controlling her lymphedema. Prior Treatments and Tests just told to wear compression stockings. Treatment Goals Patient/Caregiver Goals decrease lymphedema to allow her to do usual activities without excess weight of right LE PT-OP-C Subjective Start: 09/21/23 14:33 Freq: Status: Active Protocol: Document 10/19/23 13:49 SAK (Rec: 10/19/23 14:37 [facility] [id number]) OP-PT Subjective Patient Comments Patient Comments Got a little more swollen during the hot days last weekend. Comes to PT bandaged today, bandaged 3x since last seen, otherwise wore thigh high compression. Jayson from [employer] called her PT-OP-H Neuro Start: 09/21/23 14:33 Freq: Status: Active Protocol: Document 09/22/23 13:42 SAK (Rec: 09/23/23 17:08 [facility] [id number]) Sensation Evaluation Gross Sensation Gross Sensation WNL PT-OP-J Posture/Palpation/Skin Start: 09/21/23 14:33 Freq: Status: Active Protocol: Document 09/22/23 13:42 SAK (Rec: 09/23/23 17:08 [facility] [id number]) Palpation Assessment Location right LE Palpation Findings Edema Palpation Details no increase warmth or change in tissue texture Skin Assessment Other Assessments Skin Assessment Comments Stemmer sign positive PT-OP-K Range of Motion Start: 09/21/23 14:33 Freq: Status: Active Protocol: Document 09/22/23 13:42 SAK (Rec: 09/23/23 17:08 [facility] [id number]) Hip Goniometric Range of Motion Hip jyoti Hip ROM WFL Yes Knee Goniometric Range of Motion Knee jyoti Knee ROM WFL Yes Ankle and Foot Goniometric Range of Motion Ankle and Foot Right Dorsiflexion with Knee Flexed 5 Dorsiflexion with Knee Extended 0 left Ankle/Foot ROM WFL Yes Ankle and Foot ROM Limitations ROM Limitations Soft Tissue Tightness,Swelling PT-OP-L Special Tests Start: 09/21/23 14:33 Freq: Status: Active Protocol: Document 09/22/23 13:42 [facility] (Rec: 09/23/23 17:08 [facility] [id number]) Special Tests Other Special Tests Special Tests Stemmer sign positive for lymphedema PT-OP-N Lymphedema Start: 09/22/23 14:01 Freq: Status: Active Protocol: Document 10/19/23 13:49 SAK (Rec: 10/19/23 14:37 [facility] [id number]) Lymphedema Measurements Lower Extremity Circumference Measurements Right Affected MT Heads 22.2 cm Mid-foot 23.1 cm Medial Malleolus 27.3 cm 10 cm From Medial Malleolus 25.5 cm 20 cm From Medial Malleolus 35.2 cm 30 cm From Medial Malleolus 36 cm 40 cm From Medial Malleolus 38.1 cm 50 cm From Medial Malleolus 45.8 cm 60 cm From Medial Malleolus 57.9 cm 70 cm From Medial Malleolus 65 cm Knee Joint 37.9 cm PT-OP-Q Treatments Start: 09/21/23 14:33 Freq: Status: Active Protocol: Document 10/19/23 13:49 SAK (Rec: 10/19/23 14:37 [facility] [id number]) Cardio Equipment Recumbent Elliptical (Biodex) Duration (Minutes) 10 Resistance 2 Lymphedema Treatment Manual Lymphatic Drainage Location for right LE lymphedema Duration 30 Lymphedema Wrapping Body Location right LE toes to knee Materials Elastomull 4, Tricofix size F , Artiflex (3 rolls), Comprilan (6,8,10x3) Sequential Lymphedema Exercises Comments for right LE lymphedema Compression Garment Assessment Compression Garment Assessment Details Wearing compression bandaging today. Still fits into size II Juzo per size chart. Waiting to hear back regarding insurance coverage for compression stockings from [employer]. Patient Education [employer] awaiting insurance approval Self Manual Lymphatic Drainage good compliance Sequential Lymphedema Exercises good compliance PT-OP-R Modalities Start: 09/21/23 14:33 Freq: Status: Active Protocol: Document 10/19/23 13:49 [facility] (Rec: 10/19/23 14:47 [facility] [id number]) Compression Pump Treatment Treatment Location Right Leg Pressure Amount (mmHg) (mmHG) 40 Inflation Time (Seconds) 30 Deflation Time (Seconds) 10 Treatment Tolerance Excellent PT-OP-T Assessment and Plan Start: 09/21/23 14:33 Freq: Status: Active Protocol: Document 10/19/23 13:49 [facility] (Rec: 10/19/23 14:37 [facility] [id number]) Physical Therapy Assessment Impairments Impairments Edema,Functional Activities, Pain Goals Three Impairment pain right LE Impairment pain as high as 4/10 Lpta Goal (LTG) Decrease pain by at least 50% to allow her to return to all usual activities. LTG Duration 12/22/23 Two Impairment decreased activity tolerance Impairment Lymphedema Life Impact Scale 28% Short Term Goal (STG) Decrease Lymphedema Life Impact scale to no greater than 18% as measure of improved activity tolerance and quality of life STG Duration 11/07/23 Lpta Goal (LTG) Decrease Lymphedema Life Impact scale to no greater than 10%as measure of improved activity tolerance and quality of life LTG Duration 12/22/23 One Impairment lymphedema Short Term Goal (STG) Patient to be instructed in all aspects of lymphedema care including skin care, manual lymphatic drainage, lymphedema exercises, compression. STG Duration 11/07/23 Mcfp Goal (LTG) Patient to be independent in all aspects of lymphedema care and obtain appropriate compression garments for self management. LTG Duration 12/22/23 Assessment Summary Assessment crease in circumferential measurements with patient arriving in compression bandaging, good progress and compliance. Urging patient to try aquatic exercise as well for edema management. Awaiting insurance approval so patient can order compression stockings. Physical Therapy Plan Frequency and Duration Frequency of Treatment 20 Duration of treatment (weeks) 12 Plan of Care Start Date 09/22/23 Plan of Care End Date 12/22/23 Therapeutic Interventions Therapeutic Interventions Home Exercise Program, Lymphedema Management,Manual Therapy,Patient/Caregiver Education,Self-Care/Home Management,Soft Tissue Mobilization,Taping, Therapeutic Activities, Therapeutic Exercises Modalities Vasopneumatic Devices Next Visit Focus/Plan Next Note Type Treatment Note Next Visit Plan Continue CLT. next session submit paperwork for compression pump. Await word from [employer] regarding coverage of compression stockings
--- NOTE | 2023-10-26 14:23 | PT.OTN ---
Current Diagnoses Lymphedema, not elsewhere classified (10/26/23) Edema, unspecified (10/26/23) Encounter for supervision of other normal , second trimester (10/26/23) Physical Therapy Treatment Note PT-OP-A Visit Information Start: 09/21/23 14:33 Freq: Status: Active Protocol: Document 10/26/23 13:50 SAK (Rec: 10/26/23 14:18 [facility] [id number]) Out-Patient Physical Therapy Visit Information Visit Information Visit Type Treatment Note Visit Start Time 13:49 Visit Stop Time 15:15 Visit Number 8 Evaluation Information Evaluation Date 09/22/23 PT-OP-B Current Condition Start: 09/21/23 14:33 Freq: Status: Active Protocol: Document 10/26/23 13:50 SAK (Rec: 10/26/23 14:18 [facility] [id number]) Current Condition History of Current Condition Onset Date 6years Current Complaints lymphedema History of Current Condition lymphedema started may 2017 during first in right leg, was told it would go away. Continued to bother her, seen by vascular specialist. Has worn compression stocking (knee high since then). Second it flared up right away, just delievered baby (2 weeks old). States can just see leg swelling increase if doesn't wear compression if her legs are hanging down. Swelling location is toes to mid calf. Wears 20-30 mm Hg knee high compression but doesn't feel like adequately controlling her lymphedema. Prior Treatments and Tests just told to wear compression stockings. Treatment Goals Patient/Caregiver Goals decrease lymphedema to allow her to do usual activities without excess weight of right LE PT-OP-C Subjective Start: 09/21/23 14:33 Freq: Status: Active Protocol: Document 10/26/23 13:50 SAK (Rec: 10/26/23 14:18 [facility] [id number]) OP-PT Subjective Patient Comments Patient Comments noticing aching from her foot if not wearing compression. Has not heard from [employer] about insurance coverage yet. Continues to bandage and occasionally wear loaner thigh high compression. Very interested in a compression pump for home use to help her manage her lymphedema. Reports good compliance to HEP , self massage, elevation, skin care, and bandaging. PT-OP-H Neuro Start: 09/21/23 14:33 Freq: Status: Active Protocol: Document 09/22/23 13:42 SAK (Rec: 09/23/23 17:08 [facility] [id number]) Sensation Evaluation Gross Sensation Gross Sensation WNL PT-OP-J Posture/Palpation/Skin Start: 09/21/23 14:33 Freq: Status: Active Protocol: Document 09/22/23 13:42 SAK (Rec: 09/23/23 17:08 [facility]AK [id number]) Palpation Assessment Location right LE Palpation Findings Edema Palpation Details no increase warmth or change in tissue texture Skin Assessment Other Assessments Skin Assessment Comments Stemmer sign positive PT-OP-K Range of Motion Start: 09/21/23 14:33 Freq: Status: Active Protocol: Document 09/22/23 13:42 SAK (Rec: 09/23/23 17:08 [facility] [id number]) Hip Goniometric Range of Motion Hip jyoti Hip ROM WFL Yes Knee Goniometric Range of Motion Knee jyoti Knee ROM WFL Yes Ankle and Foot Goniometric Range of Motion Ankle and Foot Right Dorsiflexion with Knee Flexed 5 Dorsiflexion with Knee Extended 0 left Ankle/Foot ROM WFL Yes Ankle and Foot ROM Limitations ROM Limitations Soft Tissue Tightness,Swelling PT-OP-L Special Tests Start: 09/21/23 14:33 Freq: Status: Active Protocol: Document 09/22/23 13:42 SAK (Rec: 09/23/23 17:08 [facility] [id number]) Special Tests Other Special Tests Special Tests Stemmer sign positive for lymphedema PT-OP-N Lymphedema Start: 09/22/23 14:01 Freq: Status: Active Protocol: Document 10/26/23 13:50 SAK (Rec: 10/26/23 14:18 [facility] [id number]) Lymphedema Measurements Lower Extremity Circumference Measurements Right Affected MT Heads 22.4 cm Mid-foot 23.2 cm Medial Malleolus 26 cm 10 cm From Medial Malleolus 25.7 cm 20 cm From Medial Malleolus 34.9 cm 30 cm From Medial Malleolus 36.5 cm 40 cm From Medial Malleolus 40 cm 50 cm From Medial Malleolus 46.8 cm 60 cm From Medial Malleolus 56.8 cm 70 cm From Medial Malleolus 64.8 cm Knee Joint 40.5 cm Left Unaffected MT Heads 22.8 cm Mid-foot 23.5 cm Medial Malleolus 26 cm 10 cm From Medial Malleolus 26 cm 20 cm From Medial Malleolus 26.1 cm 30 cm From Medial Malleolus 37 cm 40 cm From Medial Malleolus 39.5 cm 50 cm From Medial Malleolus 47.4 cm 60 cm From Medial Malleolus 57.4 cm 70 cm From Medial Malleolus 65.9 cm Knee Joint 39.7 cm PT-OP-Q Treatments Start: 09/21/23 14:33 Freq: Status: Active Protocol: Document 10/26/23 13:50 [facility] (Rec: 10/26/23 14:18 [facility] [id number]) Lymphedema Treatment Manual Lymphatic Drainage Location for right LE lymphedema Duration 30 Comments Focus on AIA, and AII pathways Lymphedema Wrapping Body Location right LE toes to knee Materials Elastomull 4, Tricofix size F , Komprex kidneys (2) Artiflex (3 rolls), Comprilan (6,8,10x3) Sequential Lymphedema Exercises Duration 10 min Comments for right LE lymphedema Compression Garment Assessment Compression Garment Assessment Details Wearing compression bandaging today. Still fits into size II Juzo per size chart. Waiting to hear back regarding insurance coverage for compression stockings from [employer]. PT-OP-R Modalities Start: 09/21/23 14:33 Freq: Status: Active Protocol: Document 10/26/23 13:50 [facility] (Rec: 10/26/23 14:20 [facility] [id number]) Compression Pump Treatment Treatment Location Right Leg Pressure Amount (mmHg) (mmHG) 40 Inflation Time (Seconds) 30 Deflation Time (Seconds) 10 Treatment Tolerance Excellent PT-OP-T Assessment and Plan Start: 09/21/23 14:33 Freq: Status: Active Protocol: Document 10/26/23 13:50 [facility] (Rec: 10/26/23 14:18 [facility] [id number]) Physical Therapy Assessment Goals Three Impairment pain right LE Impairment pain as high as 4/10 Senior Living Goal (LTG) Decrease pain by at least 50% to allow her to return to all usual activities. LTG Duration 12/22/23 Two Impairment decreased activity tolerance Impairment Lymphedema Life Impact Scale 28% Short Term Goal (STG) Decrease Lymphedema Life Impact scale to no greater than 18% as measure of improved activity tolerance and quality of life STG Duration 11/07/23 Foundry Operator Goal (LTG) Decrease Lymphedema Life Impact scale to no greater than 10%as measure of improved activity tolerance and quality of life LTG Duration 12/22/23 One Impairment lymphedema Short Term Goal (STG) Patient to be instructed in all aspects of lymphedema care including skin care, manual lymphatic drainage, lymphedema exercises, compression. STG Duration 11/07/23 Foundry Operator Goal (LTG) Patient to be independent in all aspects of lymphedema care and obtain appropriate compression garments for self management. LTG Duration 12/22/23 Assessment Summary Assessment Patient has completed more than 30o days of conservative therapy including elevation, manual lymphatic drainage, lymphedema exercises, skin care, and compression. She is highly compliant to self care as instructed, demonstrating good learning ability and doing well with self bandaging . Despite this she continues to have difficulty with self management of her lymphedema and would benefit from a sequential pneumatic pump to assist her in her self care for lymphedema. Physical Therapy Plan Frequency and Duration Frequency of Treatment 20 Duration of treatment (weeks) 12 Plan of Care Start Date 09/22/23 Plan of Care End Date 12/22/23 Therapeutic Interventions Therapeutic Interventions Home Exercise Program, Lymphedema Management,Manual Therapy,Patient/Caregiver Education,Self-Care/Home Management,Soft Tissue Mobilization,Taping, Therapeutic Activities, Therapeutic Exercises Modalities Vasopneumatic Devices Next Visit Focus/Plan Next Note Type Treatment Note Next Visit Plan Continue CDT, measure for compression garment if measurements stable.
--- NOTE | 2023-11-26 14:55 | PT.OTN ---
Current Diagnoses Lymphedema, not elsewhere classified (11/26/23) Edema, unspecified (11/26/23) Encounter for supervision of other normal , second trimester (11/26/23) Physical Therapy Treatment Note PT-OP-A Visit Information Start: 09/21/23 14:33 Freq: Status: Active Protocol: Document 11/26/23 14:01 SAK (Rec: 11/26/23 14:51 [facility] [id number]) Out-Patient Physical Therapy Visit Information Visit Information Visit Type Treatment Note Visit Start Time 13:49 Visit Stop Time 15:15 Visit Number 8 Evaluation Information Evaluation Date 09/22/23 PT-OP-B Current Condition Start: 09/21/23 14:33 Freq: Status: Active Protocol: Document 11/26/23 14:01 SAK (Rec: 11/26/23 14:51 [facility] [id number]) Current Condition History of Current Condition Onset Date 6years Current Complaints lymphedema History of Current Condition lymphedema started may 2017 during first in right leg, was told it would go away. Continued to bother her, seen by vascular specialist. Has worn compression stocking (knee high since then). Second it flared up right away, just delievered baby (2 weeks old). States can just see leg swelling increase if doesn't wear compression if her legs are hanging down. Swelling location is toes to mid calf. Wears 20-30 mm Hg knee high compression but doesn't feel like adequately controlling her lymphedema. Prior Treatments and Tests just told to wear compression stockings. Treatment Goals Patient/Caregiver Goals decrease lymphedema to allow her to do usual activities without excess weight of right LE PT-OP-C Subjective Start: 09/21/23 14:33 Freq: Status: Active Protocol: Document 11/26/23 14:01 SAK (Rec: 11/26/23 14:51 [facility] [id number]) OP-PT Subjective Patient Comments Patient Comments Has still been bandaging, but also got Juzo 30-40 mm Hg closed toe, work well except for toes and top of foot. Hasn't gotten toe cap yet, trial one from PT didn't go high enough up on foot. Still waiting to hear from [employer] about insurance coverage. Bandaging escpecially at night due to swelling in toes and distal foot. Hasn't gotten pump yet, PT still waiting. PT-OP-H Neuro Start: 09/21/23 14:33 Freq: Status: Active Protocol: Document 09/22/23 13:42 SAK (Rec: 09/23/23 17:08 [facility] [id number]) Sensation Evaluation Gross Sensation Gross Sensation WNL PT-OP-J Posture/Palpation/Skin Start: 09/21/23 14:33 Freq: Status: Active Protocol: Document 09/22/23 13:42 SAK (Rec: 09/23/23 17:08 [facility] [id number]) Palpation Assessment Location right LE Palpation Findings Edema Palpation Details no increase warmth or change in tissue texture Skin Assessment Other Assessments Skin Assessment Comments Stemmer sign positive PT-OP-K Range of Motion Start: 09/21/23 14:33 Freq: Status: Active Protocol: Document 09/22/23 13:42 SAK (Rec: 09/23/23 17:08 [facility] [id number]) Hip Goniometric Range of Motion Hip jyoti Hip ROM WFL Yes Knee Goniometric Range of Motion Knee jyoti Knee ROM WFL Yes Ankle and Foot Goniometric Range of Motion Ankle and Foot Right Dorsiflexion with Knee Flexed 5 Dorsiflexion with Knee Extended 0 left Ankle/Foot ROM WFL Yes Ankle and Foot ROM Limitations ROM Limitations Soft Tissue Tightness,Swelling PT-OP-L Special Tests Start: 09/21/23 14:33 Freq: Status: Active Protocol: Document 09/22/23 13:42 [facility]AK (Rec: 09/23/23 17:08 [facility] [id number]) Special Tests Other Special Tests Special Tests Stemmer sign positive for lymphedema PT-OP-N Lymphedema Start: 09/22/23 14:01 Freq: Status: Active Protocol: Document 11/26/23 14:01 [facility] (Rec: 11/26/23 14:51 [facility] [id number]) Lymphedema Measurements Lower Extremity Circumference Measurements Right Affected MT Heads 22.2 cm Mid-foot 22.8 cm Medial Malleolus 26.8 cm 10 cm From Medial Malleolus 24.8 cm 20 cm From Medial Malleolus 34.5 cm 30 cm From Medial Malleolus 35.8 cm 40 cm From Medial Malleolus 37.1 cm 50 cm From Medial Malleolus 43.3 cm 60 cm From Medial Malleolus 53.3 cm 70 cm From Medial Malleolus 62.2 cm Knee Joint 37.1 cm PT-OP-Q Treatments Start: 09/21/23 14:33 Freq: Status: Active Protocol: Document 11/26/23 14:01 [facility] (Rec: 11/26/23 14:51 [facility] [id number]) Lymphedema Treatment Manual Lymphatic Drainage Location for right LE lymphedema Duration 30 Comments Focus on AIA, and AII pathways Lymphedema Wrapping Body Location right LE toes to knee Materials Elastomull 4, Tricofix size F , Komprex kidneys (2) Artiflex (3 rolls), Comprilan (6,8,10x3) Sequential Lymphedema Exercises Duration 10 min Comments for right LE lymphedema Compression Garment Assessment Compression Garment Assessment Details Wearing compression bandaging today. Obtained size II JUzo thigh high 30-40 mm Hg. Waiting to hear back regarding insurance coverage for compression stockings from [employer]. Is open to going to local fitter. Discussed [facility] [place] . PT-OP-R Modalities Start: 09/21/23 14:33 Freq: Status: Active Protocol: Document 11/26/23 14:01 [facility] (Rec: 11/26/23 14:51 [facility] [id number]) Compression Pump Treatment Treatment Location Right Leg Pressure Amount (mmHg) (mmHG) 40 Inflation Time (Seconds) 30 Deflation Time (Seconds) 10 Treatment Tolerance Excellent PT-OP-T Assessment and Plan Start: 09/21/23 14:33 Freq: Status: Active Protocol: Document 11/26/23 14:01 [facility] (Rec: 11/26/23 14:51 [facility] [id number]) Physical Therapy Assessment Impairments Impairments Edema,Functional Activities, Pain Goals Three Impairment pain right LE Impairment pain as high as 4/10 Door Installer Goal (LTG) Decrease pain by at least 50% to allow her to return to all usual activities. 11/26/23: still can be as high as 3/10 LTG Duration 12/22/23 Two Impairment decreased activity tolerance Impairment Lymphedema Life Impact Scale 28% Short Term Goal (STG) Decrease Lymphedema Life Impact scale to no greater than 18% as measure of improved activity tolerance and quality of life 11/26/23: 15% goal met STG Duration goal met Door Installer Goal (LTG) Decrease Lymphedema Life Impact scale to no greater than 10%as measure of improved activity tolerance and quality of life LTG Duration 12/22/23 One Impairment lymphedema Short Term Goal (STG) Patient to be instructed in all aspects of lymphedema care including skin care, manual lymphatic drainage, lymphedema exercises, compression. 11/26/23: goal met STG Duration goal met Door Installer Goal (LTG) Patient to be independent in all aspects of lymphedema care and obtain appropriate compression garments for self management. LTG Duration 12/22/23 Assessment Summary Assessment Patient has not heard back from [employer] yet regarding insurance approval for supplies and garments for lymphedema. Given information about [facility] [place] as local option. Also given information about [facility] if wants to look further into cause of her lymphedema as no previous answers obtained. PT awaiting approval and delivery of sequential pneumatic pump for home use and will need to train patient due to no local reps. Physical Therapy Plan Frequency and Duration Frequency of Treatment 20 Duration of treatment (weeks) 12 Plan of Care Start Date 09/22/23 Plan of Care End Date 12/22/23 Therapeutic Interventions Therapeutic Interventions Home Exercise Program, Lymphedema Management,Manual Therapy,Patient/Caregiver Education,Self-Care/Home Management,Soft Tissue Mobilization,Taping, Therapeutic Activities, Therapeutic Exercises Modalities Vasopneumatic Devices Next Visit Focus/Plan Next Note Type Treatment Note Next Visit Plan Train in use of sequential pneumatic pump when arrives. Patient to consider contacting [facility] for toe cap fitting and to order further compression in the future if doesn't hear back from [facility] [facility].
--- NOTE | 2023-12-21 12:05 | PT.OTRE ---
Current Diagnoses Lymphedema, not elsewhere classified (12/21/23) Edema, unspecified (12/21/23) Encounter for supervision of other normal , second trimester (12/21/23) Surgical History (Last Updated 03/07/23 @ 21:46 by Gracie Nunez) Anesthesia History of tonsillectomy (~2007) [place] teeth extracted (~2015) Visit Care Team Role Provider Type Eileen Wise MD Referring Provider Physician Specialty: Gynecology REEL FILM INSPECTOR Obstetrics Address: [address] [place] [address] [address], [address] Email: [email or web address] [place] MOHIT Provider Primary Care Provider Non-Staff Specialty: Medical Address: Phone: Email: Mikaela Cote DO Attending Provider Physician Family Provider Specialty: REEL FILM INSPECTOR Address: [address] [place] [address], [address], [address] Email: [email or web address] Physical Therapy Re-Evaluation PT-OP-A Visit Information Start: 09/21/23 14:33 Freq: Status: Active Protocol: Document 12/21/23 10:33 [facility] (Rec: 12/21/23 12:05 [facility] [id number]) Out-Patient Physical Therapy Visit Information Visit Information Visit Type Treatment Note Visit Start Time 10:34 Visit Stop Time 09:00 Evaluation Information Evaluation Date 09/22/23 PT-OP-B Current Condition Start: 09/21/23 14:33 Freq: Status: Active Protocol: Document 12/21/23 10:33 [facility] (Rec: 12/21/23 12:05 [facility] [id number]) Current Condition History of Current Condition Onset Date 6years Current Complaints lymphedema History of Current Condition lymphedema started may 2017 during first in right leg, was told it would go away. Continued to bother her, seen by vascular specialist. Has worn compression stocking (knee high since then). Second it flared up right away, just delievered baby (2 weeks old). States can just see leg swelling increase if doesn't wear compression if her legs are hanging down. Swelling location is toes to mid calf. Wears 20-30 mm Hg knee high compression but doesn't feel like adequately controlling her lymphedema. Prior Treatments and Tests just told to wear compression stockings. Treatment Goals Patient/Caregiver Goals decrease lymphedema to allow her to do usual activities without excess weight of right LE PT-OP-C Subjective Start: 09/21/23 14:33 Freq: Status: Active Protocol: Document 12/21/23 10:33 [facility] (Rec: 12/21/23 12:05 [facility] [id number]) OP-PT Subjective Patient Comments Patient Comments Has heat rash on feet. Has finally gotten connected with [employer] about PT-OP-H Neuro Start: 09/21/23 14:33 Freq: Status: Active Protocol: Document 09/22/23 13:42 [facility] (Rec: 09/23/23 17:08 [facility] [id number]) Sensation Evaluation Gross Sensation Gross Sensation WNL PT-OP-J Posture/Palpation/Skin Start: 09/21/23 14:33 Freq: Status: Active Protocol: Document 09/22/23 13:42 [facility] (Rec: 09/23/23 17:08 [facility] [id number]) Palpation Assessment Location right LE Palpation Findings Edema Palpation Details no increase warmth or change in tissue texture Skin Assessment Other Assessments Skin Assessment Comments Stemmer sign positive PT-OP-K Range of Motion Start: 09/21/23 14:33 Freq: Status: Active Protocol: Document 09/22/23 13:42 [facility] (Rec: 09/23/23 17:08 [facility] [id number]) Hip Goniometric Range of Motion Hip Measured in Degrees jyoti Hip ROM WFL Yes Knee Goniometric Range of Motion Knee Measured in Degrees jyoti Knee ROM WFL Yes Ankle and Foot Goniometric Range of Motion Ankle and Foot Measured in Degrees Right Dorsiflexion with Knee Flexed 5 Dorsiflexion with Knee Extended 0 left Ankle/Foot ROM WFL Yes Ankle and Foot ROM Limitations ROM Limitations Soft Tissue Tightness,Swelling PT-OP-L Special Tests Start: 09/21/23 14:33 Freq: Status: Active Protocol: Document 09/22/23 13:42 [facility] (Rec: 09/23/23 17:08 [facility] [id number]) Special Tests Other Special Tests Special Tests Stemmer sign positive for lymphedema PT-OP-N Lymphedema Start: 09/22/23 14:01 Freq: Status: Active Protocol: Document 12/21/23 10:33 [facility] (Rec: 12/21/23 12:05 [facility] [id number]) Lymphedema Measurements Lower Extremity Circumference Measurements Right Affected MT Heads 22.2 cm Mid-foot 22.8 cm Medial Malleolus 26.5 cm 10 cm From Medial Malleolus 26.2 cm 20 cm From Medial Malleolus 36.2 cm 30 cm From Medial Malleolus 36.2 cm 40 cm From Medial Malleolus 36 cm 50 cm From Medial Malleolus 42.6 cm 60 cm From Medial Malleolus 53.3 cm 70 cm From Medial Malleolus 63.3 cm Knee Joint 36 cm PT-OP-Q Treatments Start: 09/21/23 14:33 Freq: Status: Active Protocol: Document 11/26/23 14:01 [facility] (Rec: 11/26/23 14:51 [facility] [id number]) Lymphedema Treatment Manual Lymphatic Drainage Location for right LE lymphedema Duration 30 Comments Focus on AIA, and AII pathways Lymphedema Wrapping Body Location right LE Materials KT tape for edema reduction trial. Told to remove after 5 days or if skin becomes irritated. Sequential Lymphedema Exercises Duration 10 min Comments for right LE lymphedema Compression Garment Assessment Compression Garment Assessment Details Wearing compression bandaging today. Obtained size II JUzo thigh high 30-40 mm Hg. Waiting to hear back regarding insurance coverage for compression stockings from [employer]. Is open to going to local fitter. Discussed [facility] [place] . PT-OP-R Modalities Start: 09/21/23 14:33 Freq: Status: Active Protocol: Document 11/26/23 14:01 [facility] (Rec: 11/26/23 14:51 [facility] [id number]) Compression Pump Treatment Treatment Location Right Leg Pressure Amount (mmHg) (mmHG) 40 Inflation Time (Seconds) 30 Deflation Time (Seconds) 10 Treatment Tolerance Excellent PT-OP-T Assessment and Plan Start: 09/21/23 14:33 Freq: Status: Active Protocol: Document 12/21/23 10:33 [facility] (Rec: 12/21/23 12:05 [facility] [id number]) Physical Therapy Assessment Impairments Impairments Edema,Functional Activities, Pain Goals Three Impairment pain right LE Impairment pain as high as 4/10 Senior Care Goal (LTG) Decrease pain by at least 50% to allow her to return to all usual activities. 6/20/24: still can be as high as 3/10 12/21/23: goal met LTG Duration goal met Two Impairment decreased activity tolerance Impairment Lymphedema Life Impact Scale 28% Short Term Goal (STG) Decrease Lymphedema Life Impact scale to no greater than 18% as measure of improved activity tolerance and quality of life 11/26/23: 15% goal met STG Duration goal met Funeral Counselor Goal (LTG) Decrease Lymphedema Life Impact scale to no greater than 10%as measure of improved activity tolerance and quality of life 12/21/23: goal met LTG Duration 12/22/23 One Impairment lymphedema Short Term Goal (STG) Patient to be instructed in all aspects of lymphedema care including skin care, manual lymphatic drainage, lymphedema exercises, compression. 11/26/23: goal met STG Duration goal met Senior Care Goal (LTG) Patient to be independent in all aspects of lymphedema care and obtain appropriate compression garments for self management. 12/22/23: goal mostly met, hasn 't received sequential pneumatic pump yet. LTG Duration 01/22/24 Assessment Summary Assessment Patient still awaiting approval and delievery of sequential pneumatic pump as well as delivery of compression garment for toes. Is wearing compression stockings or bandaging consistently and is independent. Plan 1 further visit when pump arrives for training of patient and to assess fit of compression for toes (toe cap). Physical Therapy Plan Frequency and Duration Frequency of Treatment 1 visit Duration of treatment (weeks) 4 Plan of Care Start Date 12/21/23 Plan of Care End Date 01/21/24 Therapeutic Interventions Therapeutic Interventions Home Exercise Program, Lymphedema Management,Manual Therapy,Patient/Caregiver Education,Self-Care/Home Management,Soft Tissue Mobilization,Taping, Therapeutic Activities, Therapeutic Exercises Modalities Vasopneumatic Devices Next Visit Focus/Plan Next Note Type Treatment Note Next Visit Plan Train in use of sequential pneumatic pump when arrives. Assess fit of toe caps.
--- NOTE | 2023-12-21 12:05 | PT.OPPOC ---
Physical, Occupational & Speech Therapy At [facility] Current Diagnoses Lymphedema, not elsewhere classified (12/21/23) Edema, unspecified (12/21/23) Encounter for supervision of other normal , second trimester (12/21/23) Visit Care Team Role Provider Type Eileen Wise MD Referring Provider Physician Specialty: Gynecology DIRECTOR OF REHABILITATION AND WELLNESS Obstetrics Address: [address] [place] [address] [address], [address] Email: [email or web address] Rupesh MOHIT Provider Primary Care Provider Non-Staff Specialty: Medical Address: Phone: Email: Mikaela Cote DO Attending Provider Physician Family Provider Specialty: DIRECTOR OF REHABILITATION AND WELLNESS Address: [address] [place] [address], [address], [address] Email: [email or web address] Plan Of Care PT-OP-T Assessment and Plan Start: 09/21/23 14:33 Freq: Status: Active Protocol: Document 12/21/23 10:33 [facility] (Rec: 12/21/23 12:05 [facility] [id number]) Physical Therapy Assessment Impairments Impairments Edema,Functional Activities, Pain Goals Three Impairment pain right LE Impairment pain as high as 4/10 Line Staker Goal (LTG) Decrease pain by at least 50% to allow her to return to all usual activities. 11/26/23: still can be as high as 3/10 12/21/23: goal met LTG Duration goal met Two Impairment decreased activity tolerance Impairment Lymphedema Life Impact Scale 28% Short Term Goal (STG) Decrease Lymphedema Life Impact scale to no greater than 18% as measure of improved activity tolerance and quality of life 11/26/23: 15% goal met STG Duration goal met Line Staker Goal (LTG) Decrease Lymphedema Life Impact scale to no greater than 10%as measure of improved activity tolerance and quality of life 12/21/23: goal met LTG Duration 12/22/23 One Impairment lymphedema Short Term Goal (STG) Patient to be instructed in all aspects of lymphedema care including skin care, manual lymphatic drainage, lymphedema exercises, compression. 11/26/23: goal met STG Duration goal met [facility] Goal (LTG) Patient to be independent in all aspects of lymphedema care and obtain appropriate compression garments for self management. 12/22/23: goal mostly met, hasn 't received sequential pneumatic pump yet. LTG Duration 01/22/24 Assessment Summary Assessment Patient still awaiting approval and delievery of sequential pneumatic pump as well as delivery of compression garment for toes. Is wearing compression stockings or bandaging consistently and is independent. Plan 1 further visit when pump arrives for training of patient and to assess fit of compression for toes (toe cap). Physical Therapy Plan Frequency and Duration Frequency of Treatment 1 visit Duration of treatment (weeks) 4 Plan of Care Start Date 12/21/23 Plan of Care End Date 01/21/24 Therapeutic Interventions Therapeutic Interventions Home Exercise Program, Lymphedema Management,Manual Therapy,Patient/Caregiver Education,Self-Care/Home Management,Soft Tissue Mobilization,Taping, Therapeutic Activities, Therapeutic Exercises Modalities Vasopneumatic Devices Next Visit Focus/Plan Next Note Type Treatment Note Next Visit Plan Train in use of sequential pneumatic pump when arrives. Assess fit of toe caps. Plan of Care Dates Plan of Care Start Date 12/21/23 Plan of Care End Date 01/21/24 Electronically Signed by: Adele Romo, PT 12/21/23 8166 If you are in agreement with this Plan of Care, please return a signed and dated copy. I have reviewed this Plan of Care and certify that the skilled therapy services above are required to meet the patient?s needs. Physician Signature Date Printed Name and Credentials Clinical Instructor Signature Printed Name and Credentials
--- NOTE | 2024-01-05 09:39 | PT.OTN ---
Current Diagnoses Lymphedema, not elsewhere classified (01/05/24) Edema, unspecified (01/05/24) Encounter for supervision of other normal , second trimester (01/05/24) Physical Therapy Treatment Note PT-OP-A Visit Information Start: 09/21/23 14:33 Freq: Status: Active Protocol: Document 01/05/24 09:02 [facility] (Rec: 01/05/24 09:47 [facility] [id number]) Out-Patient Physical Therapy Visit Information Visit Information Visit Type Treatment Note Visit Start Time 09:02 Visit Stop Time 09:45 Visit Number 10 Evaluation Information Evaluation Date 09/22/23 PT-OP-B Current Condition Start: 09/21/23 14:33 Freq: Status: Active Protocol: Document 01/05/24 09:02 [facility] (Rec: 01/05/24 09:47 [facility] [id number]) Current Condition History of Current Condition Onset Date 6years Current Complaints lymphedema History of Current Condition lymphedema started may 2017 during first in right leg, was told it would go away. Continued to bother her, seen by vascular specialist. Has worn compression stocking (knee high since then). Second it flared up right away, just delievered baby (2 weeks old). States can just see leg swelling increase if doesn't wear compression if her legs are hanging down. Swelling location is toes to mid calf. Wears 20-30 mm Hg knee high compression but doesn't feel like adequately controlling her lymphedema. Prior Treatments and Tests just told to wear compression stockings. Treatment Goals Patient/Caregiver Goals decrease lymphedema to allow her to do usual activities without excess weight of right LE PT-OP-C Subjective Start: 09/21/23 14:33 Freq: Status: Active Protocol: Document 01/05/24 09:02 [facility] (Rec: 01/05/24 09:47 [facility] [id number]) OP-PT Subjective Patient Comments Patient Comments Has gotten thigh high compression stocking 30-40 no toe which is working well. Here for measurement PT-OP-H Neuro Start: 09/21/23 14:33 Freq: Status: Active Protocol: Document 09/22/23 13:42 [facility] (Rec: 09/23/23 17:08 [facility] [id number]) Sensation Evaluation Gross Sensation Gross Sensation WNL PT-OP-J Posture/Palpation/Skin Start: 09/21/23 14:33 Freq: Status: Active Protocol: Document 09/22/23 13:42 [facility] (Rec: 09/23/23 17:08 [facility] [id number]) Palpation Assessment Location right LE Palpation Findings Edema Palpation Details no increase warmth or change in tissue texture Skin Assessment Other Assessments Skin Assessment Comments Stemmer sign positive PT-OP-K Range of Motion Start: 09/21/23 14:33 Freq: Status: Active Protocol: Document 09/22/23 13:42 [facility] (Rec: 09/23/23 17:08 [facility] [id number]) Hip Goniometric Range of Motion Hip jyoti Hip ROM WFL Yes Knee Goniometric Range of Motion Knee jyoti Knee ROM WFL Yes Ankle and Foot Goniometric Range of Motion Ankle and Foot Right Dorsiflexion with Knee Flexed 5 Dorsiflexion with Knee Extended 0 left Ankle/Foot ROM WFL Yes Ankle and Foot ROM Limitations ROM Limitations Soft Tissue Tightness,Swelling PT-OP-L Special Tests Start: 09/21/23 14:33 Freq: Status: Active Protocol: Document 09/22/23 13:42 [facility] (Rec: 09/23/23 17:08 [facility] [id number]) Special Tests Other Special Tests Special Tests Stemmer sign positive for lymphedema PT-OP-N Lymphedema Start: 09/22/23 14:01 Freq: Status: Active Protocol: Document 12/21/23 10:33 [facility] (Rec: 12/21/23 12:05 [facility] [id number]) Lymphedema Measurements Lower Extremity Circumference Measurements Right Affected MT Heads 22.2 cm Mid-foot 22.8 cm Medial Malleolus 26.5 cm 10 cm From Medial Malleolus 26.2 cm 20 cm From Medial Malleolus 36.2 cm 30 cm From Medial Malleolus 36.2 cm 40 cm From Medial Malleolus 36 cm 50 cm From Medial Malleolus 42.6 cm 60 cm From Medial Malleolus 53.3 cm 70 cm From Medial Malleolus 63.3 cm Knee Joint 36 cm PT-OP-Q Treatments Start: 09/21/23 14:33 Freq: Status: Active Protocol: Document 01/05/24 09:02 [facility] (Rec: 01/06/24 09:39 [facility] [id number]) Lymphedema Treatment Patient Education Other educated in set up and use of sequential pneumatic pump. She demonstrated good understanding. When hers arrives she will be contacted for pickling grader. Other Other Patient measured for toe caps right foot. PT-OP-R Modalities Start: 09/21/23 14:33 Freq: Status: Active Protocol: Document 11/26/23 14:01 [facility] (Rec: 11/26/23 14:51 [facility] [id number]) Compression Pump Treatment Treatment Location Right Leg Pressure Amount (mmHg) (mmHG) 40 Inflation Time (Seconds) 30 Deflation Time (Seconds) 10 Treatment Tolerance Excellent PT-OP-T Assessment and Plan Start: 09/21/23 14:33 Freq: Status: Active Protocol: Document 01/05/24 09:02 [facility] (Rec: 01/05/24 09:47 [facility] [id number]) Physical Therapy Assessment Impairments Impairments Edema,Functional Activities, Pain Goals Three Impairment pain right LE Impairment pain as high as 4/10 Addictions Counselor Assistant Goal (LTG) Decrease pain by at least 50% to allow her to return to all usual activities. 11/26/23: still can be as high as 3/10 12/21/23: goal met LTG Duration goal met Two Impairment decreased activity tolerance Impairment Lymphedema Life Impact Scale 28% Short Term Goal (STG) Decrease Lymphedema Life Impact scale to no greater than 18% as measure of improved activity tolerance and quality of life 11/26/23: 15% goal met STG Duration goal met Addictions Counselor Assistant Goal (LTG) Decrease Lymphedema Life Impact scale to no greater than 10%as measure of improved activity tolerance and quality of life 12/21/23: goal met LTG Duration 12/22/23 One Impairment lymphedema Short Term Goal (STG) Patient to be instructed in all aspects of lymphedema care including skin care, manual lymphatic drainage, lymphedema exercises, compression. 11/26/23: goal met STG Duration goal met Addictions Counselor Assistant Goal (LTG) Patient to be independent in all aspects of lymphedema care and obtain appropriate compression garments for self management. 12/22/23: goal mostly met, hasn 't received sequential pneumatic pump yet. LTG Duration 01/22/24 Assessment Summary Assessment Good fit of thigh high compression stocking 30-40 mm Hg Juzo with silicone beads at top. Patient measured for toe caps today and instructed in use of sequential pneumatic pump; hers hasn't arrived yet , but when does patient will be contacted to pickling grader. No further PT needs at this time pending good fit of toe caps. If problems with fit may need to come for problem solving Physical Therapy Plan Hold Physical Therapy Reason For Hold Patient to pickling grader pump when delivered since she was trained in use today. No further PT need pending appropriate fit of toe caps so will hold PT at this time
--- NOTE | 2024-10-04 09:52 | PT.OPDS ---
Current Diagnoses Lymphedema, not elsewhere classified (01/05/24) Edema, unspecified (01/05/24) Encounter for supervision of other normal , second trimester (01/05/24) Visit Care Team Role Provider Type Eileen Wise MD Referring Provider Physician Specialty: Gynecology DIRECTOR OF NUCLEAR MEDICINE Obstetrics Address: [address] [place] [address] [address], [place], [address] Email: [email or web address] Rupesh MOHIT Provider Primary Care Provider Facility Specialty: Family Practice Address: Phone: Email: Mikaela Cote DO Attending Provider Physician Family Provider Specialty: DIRECTOR OF NUCLEAR MEDICINE Address: [address] [place] [address], [address], [place], [address] Email: [email or web address] Visit Number Visit Number 10 Discharge Summary PT-OP-B Current Condition Start: 09/21/23 14:33 Freq: Status: Active Protocol: Document 01/05/24 09:02 [facility] (Rec: 01/05/24 09:47 [facility] [id number]) Current Condition History of Current Condition Onset Date 6years Current Complaints lymphedema History of Current Condition lymphedema started may 2017 during first in right leg, was told it would go away. Continued to bother her, seen by vascular specialist. Has worn compression stocking (knee high since then). Second it flared up right away, just delievered baby (2 weeks old). States can just see leg swelling increase if doesn't wear compression if her legs are hanging down. Swelling location is toes to mid calf. Wears 20-30 mm Hg knee high compression but doesn't feel like adequately controlling her lymphedema. Prior Treatments and Tests just told to wear compression stockings. Treatment Goals Patient/Caregiver Goals decrease lymphedema to allow her to do usual activities without excess weight of right LE PT-OP-C Subjective Start: 09/21/23 14:33 Freq: Status: Active Protocol: Document 01/05/24 09:02 [facility] (Rec: 01/05/24 09:47 [facility] [id number]) OP-PT Subjective Patient Comments Patient Comments Has gotten thigh high compression stocking 30-40 no toe which is working well. Here for measurement PT-OP-H Neuro Start: 09/21/23 14:33 Freq: Status: Active Protocol: Document 09/22/23 13:42 [facility] (Rec: 09/23/23 17:08 [facility] [id number]) Sensation Evaluation Gross Sensation Gross Sensation WNL PT-OP-J Posture/Palpation/Skin Start: 09/21/23 14:33 Freq: Status: Active Protocol: Document 09/22/23 13:42 [facility] (Rec: 09/23/23 17:08 [facility] [id number]) Palpation Assessment Location right LE Palpation Findings Edema Palpation Details no increase warmth or change in tissue texture Skin Assessment Other Assessments Skin Assessment Comments Stemmer sign positive PT-OP-K Range of Motion Start: 09/21/23 14:33 Freq: Status: Active Protocol: Document 09/22/23 13:42 [facility] (Rec: 09/23/23 17:08 [facility] [id number]) Hip Goniometric Range of Motion Hip jyoti Hip ROM WFL Yes Knee Goniometric Range of Motion Knee jyoti Knee ROM WFL Yes Ankle and Foot Goniometric Range of Motion Ankle and Foot Right Dorsiflexion with Knee Flexed 5 Dorsiflexion with Knee Extended 0 left Ankle/Foot ROM WFL Yes Ankle and Foot ROM Limitations ROM Limitations Soft Tissue Tightness,Swelling PT-OP-L Special Tests Start: 09/21/23 14:33 Freq: Status: Active Protocol: Document 09/22/23 13:42 [facility] (Rec: 09/23/23 17:08 [facility] [id number]) Special Tests Other Special Tests Special Tests Stemmer sign positive for lymphedema PT-OP-N Lymphedema Start: 09/22/23 14:01 Freq: Status: Active Protocol: Document 12/21/23 10:33 [facility] (Rec: 12/21/23 12:05 [facility] [id number]) Lymphedema Measurements Lower Extremity Circumference Measurements Right Affected MT Heads 22.2 cm Mid-foot 22.8 cm Medial Malleolus 26.5 cm 10 cm From Medial Malleolus 26.2 cm 20 cm From Medial Malleolus 36.2 cm 30 cm From Medial Malleolus 36.2 cm 40 cm From Medial Malleolus 36 cm 50 cm From Medial Malleolus 42.6 cm 60 cm From Medial Malleolus 53.3 cm 70 cm From Medial Malleolus 63.3 cm Knee Joint 36 cm PT-OP-T Assessment and Plan Start: 09/21/23 14:33 Freq: Status: Active Protocol: Document 10/04/24 09:52 [facility] (Rec: 10/04/24 09:52 [facility] Laptop) Physical Therapy Plan Discharge Physical Therapy Discharge Reasons No Longer Attending PT
== END 2024-10-04 13:40 | disposition home or self-care (01) ==
LOC: PHYS 09:00
PROVIDERS: Family Provider Student in an Organized Health Care Education/Training Program; Referring Provider Obstetrics & Gynecology; Visit Provider Student in an Organized Health Care Education/Training Program
DX: Z34.82 Encounter for supervision of other normal pregnancy, second trimester (principal); R60.9 Edema, unspecified; I89.0 Lymphedema, not elsewhere classified
CPT/HCPCS: 29581; 97016; 97110; 97140; 97162; 97535